=== PATIENT | male | born 1950 | race Two or more races ===

== ENCOUNTER → 2016-07-03 | Outpatient (CLI) | payer MEDICARE | LOC: MW.CHIM 08:00 | PROVIDERS: ATTEND Internal Medicine | DX: K40.90 Unilateral inguinal hernia, without obstruction or gangrene, not specified as recurrent (principal); I10 Essential (primary) hypertension; R41.89 Other symptoms and signs involving cognitive functions and awareness; G25.2 Other specified forms of tremor | CPT/HCPCS: 99214 ==

== ENCOUNTER → 2016-07-05 | Outpatient (CLI) | payer MEDICARE | LOC: MW.CHGS 08:00 | PROVIDERS: ATTEND Surgery | DX: K40.90 Unilateral inguinal hernia, without obstruction or gangrene, not specified as recurrent (principal); N48.9 Disorder of penis, unspecified | CPT/HCPCS: 99204 ==

== ENCOUNTER 2016-11-10 20:42 | Emergency (ER) | payer MEDICARE, MEDICAID ==
[2016-11-10] MEDS ORDERED: Sodium Chloride 0.9% 1,000 ML IV ONE ×2 (20:53→22:04)
--- NOTE | 2016-11-10 20:54 | EDM.PDOC ---
ED HPI GENERAL MEDICAL PROBLEM - General Stated Complaint: PT LIGHTHEADED AND BLURRED VISION Time Seen by Provider: 11/10/16 20:54 Source of Information: Reports: Patient - History of Present Illness INITIAL COMMENTS - FREE TEXT/NARRATIVE: HISTORY AND PHYSICAL: History of present illness: []Patient presents with one week of generalized weakness decreased appetite polydipsia and polyuria states that he feels somewhat shaky tonight he is in no distress Has a history of hypertension and dyslipidemia followed by Dr. Henderson No fever nausea vomiting chills sweats no chest pain shortness breath headache or palpitation no bowel symptoms patient has been lightheaded at times over the last week as well as noting some blurred vision currently he does not have the symptoms Review of systems: As per history of present illness and below otherwise all systems reviewed and negative. Past medical history: As per history of present illness and as reviewed below otherwise noncontributory. Surgical history: As per history of present illness and as reviewed below otherwise noncontributory. Social history: No reported history of drug or alcohol abuse. Family history: As per history of present illness and as reviewed below otherwise noncontributory. Physical exam: HEENT: Atraumatic, normocephalic, pupils reactive, negative for conjunctival pallor or scleral icterus, mucous membranes moist, throat clear, neck supple, nontender, trachea midline. Lungs: Clear to auscultation, breath sounds equal bilaterally, chest nontender. Heart: S1S2, regular, negative for clicks, rubs, or JVD. Abdomen: Soft, nondistended, nontender. Negative for masses or hepatosplenomegaly. Negative for costovertebral tenderness. Pelvis: Stable nontender. Genitourinary: Deferred. Rectal: Deferred. Extremities: Atraumatic, negative for cords or calf pain. Neurovascular unremarkable. Neuro: Awake, alert, oriented. Cranial nerves II through XII unremarkable. Cerebellum unremarkable. Motor and sensory unremarkable throughout. Exam nonfocal. Diagnostics: []CBC, CMP, UA--troponin, A1c EKG Chest 1 view Therapeutics: []Liter normal saline bolus 2 10 units of regular insulin IV 2 Potassium chloride 40 mEq by mouth Potassium 40 mEq by mouth daily #3 no refill Metformin 500 by mouth daily #10 no refill Follow-up with Dr. Henderson on Sunday ER referral provided Impression: []Hyperglycemia Mild hypocalcemia New-onset diabetes Chronic history of baseline Definitive disposition and diagnosis as appropriate pending reevaluation and review of above. - Related Data Allergies Allergy/AdvReac Type Severity Reaction Status Date / Time No Known Allergies Allergy Verified 05/18/16 11:14 Home Meds: Home Meds . [Unable to Verify Home Med List] 11/10/16 [History] Past Medical History - Past Health History Medical/Surgical History: Denies Medical/Surgical History Cardiovascular History: Reports: Hypertension Social & Family History - Family History Family Medical History: Unobtainable - Tobacco Use Smoking Status *Q: Current Some Day Smoker Years of Tobacco use: 40 Packs/Tins Daily: 0.2 Second Hand Smoke Exposure: Yes - Caffeine Use Caffeine Use: Reports: Coffee - Alcohol Use Days Per Week of Alcohol Use: 0 - Recreational Drug Use Recreational Drug Use: No ED ROS GENERAL - Review of Systems Review Of Systems: ROS reveals no pertinent complaints other than HPI. ED EXAM, GENERAL - Physical Exam Exam: See Below Course - Vital Signs Last Recorded V/S: Last Vital Signs Temp 35.5 C 11/10/16 20:59 Pulse 82 11/10/16 20:59 Resp 16 11/10/16 20:59 BP 170/86 H 11/10/16 20:59 Pulse Ox 96 11/10/16 20:59 - Orders/Labs/Meds Orders: Active Orders 24 hr Category Date Time Status EKG Documentation Completion [RC] STAT Care 11/10/16 20:54 Active Chest 1V Frontal [CR] Stat Exams 11/10/16 21:04 Taken Sodium Chloride 0.9% [Normal Saline] 1,000 ml Med 11/10/16 22:04 Active IV STAT Medication Orders Sodium Chloride (Normal Saline) 1,000 mls @ 999 mls/hr IV STAT ONE Stop: 11/10/16 23:04 Last Admin: 11/10/16 22:06 Dose: 999 mls/hr Labs: Laboratory Tests 11/10/16 11/10/16 11/10/16 Range/Units 20:55 21:11 21:11 WBC 5.43 (4.0-11.0) K/uL RBC 5.11 (4.50-5.90) M/uL Hgb 16.0 (13.0-17.0) g/dL Hct 43.2 (38.0-50.0) % MCV 84.5 (80.0-98.0) fL MCH 31.3 (27.0-32.0) pg MCHC 37.0 (31.0-37.0) g/dL RDW Std Deviation 39.7 (28.0-62.0) fl RDW Coeff of Heath 14 (11.0-15.0) % Plt Count 186 (150-400) K/uL MPV 10.90 (7.40-12.00) fL Neut % (Auto) 52.7 (48.0-80.0) % Lymph % (Auto) 37.6 (16.0-40.0) % [place] % (Auto) 6.8 (0.0-15.0) % Eos % (Auto) 1.8 (0.0-7.0) % Baso % (Auto) 1.1 (0.0-1.5) % Neut # (Auto) 2.9 (1.4-5.7) K/uL Lymph # (Auto) 2.0 (0.6-2.4) K/uL [place] # (Auto) 0.4 (0.0-0.8) K/uL Eos # (Auto) 0.1 (0.0-0.7) K/uL Baso # (Auto) 0.1 (0.0-0.1) K/uL Nucleated RBC % 0.0 /100WBC Nucleated RBCs # 0 K/uL Sodium 133 L (136-146) mmol/L Potassium 3.2 L (3.5-5.1) mmol/L Chloride 100 (98-110) mmol/L Carbon Dioxide 21 (21-31) mmol/L BUN 19 (6.0-23.0) mg/dL Creatinine 1.0 (0.6-1.5) mg/dL Est Cr Clr Drug Dosing 37.89 mL/min Estimated GFR (MDRD) > 60.0 ml/min Glucose 517 H* (60-110) mg/dL POC Glucose (60-110) mg/dL Hemoglobin A1c (0.0-6.0) % Calcium 8.6 L (8.8-10.8) mg/dL Total Bilirubin 0.5 (0.1-1.5) mg/dL AST 19 (5-40) IU/L ALT 32 (8-54) IU/L Alkaline Phosphatase 134 (40-150) Troponin I (0.0-0.29) NG/ML Total Protein 6.6 (6.0-8.0) g/dL Albumin 3.7 (3.4-4.8) g/dL Globulin 2.9 (2.0-3.5) g/dL Albumin/Globulin Ratio 1.3 (1.3-2.8) Urine Color YELLOW Urine Appearance CLEAR Urine pH 5.5 (5.0-8.0) Ur Specific [place] 1.010 (1.001-1.035) Urine Protein NEGATIVE (NEGATIVE) mg/dL Urine Glucose (UA) >=1000 (NEGATIVE) mg/dL Urine Ketones 40 H (NEGATIVE) mg/dL Urine Occult Blood NEGATIVE (NEGATIVE) Urine Nitrite NEGATIVE (NEGATIVE) Urine Bilirubin NEGATIVE (NEGATIVE) Urine Urobilinogen 0.2 (<2.0) EU/dL Ur Leukocyte Esterase NEGATIVE (NEGATIVE) Urine RBC 0-1 (0-2/HPF) Urine WBC Not Reportable Ur Epithelial Cells RARE (NONE-FEW) Urine Bacteria RARE (NEGATIVE) 11/10/16 11/10/16 11/10/16 Range/Units 21:11 21:11 22:00 WBC (4.0-11.0) K/uL RBC (4.50-5.90) M/uL Hgb (13.0-17.0) g/dL Hct (38.0-50.0) % MCV (80.0-98.0) fL MCH (27.0-32.0) pg MCHC (31.0-37.0) g/dL RDW Std Deviation (28.0-62.0) fl RDW Coeff of Heath (11.0-15.0) % Plt Count (150-400) K/uL MPV (7.40-12.00) fL Neut % (Auto) (48.0-80.0) % Lymph % (Auto) (16.0-40.0) % [place] % (Auto) (0.0-15.0) % Eos % (Auto) (0.0-7.0) % Baso % (Auto) (0.0-1.5) % Neut # (Auto) (1.4-5.7) K/uL Lymph # (Auto) (0.6-2.4) K/uL [place] # (Auto) (0.0-0.8) K/uL Eos # (Auto) (0.0-0.7) K/uL Baso # (Auto) (0.0-0.1) K/uL Nucleated RBC % /100WBC Nucleated RBCs # K/uL Sodium (136-146) mmol/L Potassium (3.5-5.1) mmol/L Chloride (98-110) mmol/L Carbon Dioxide (21-31) mmol/L BUN (6.0-23.0) mg/dL Creatinine (0.6-1.5) mg/dL Est Cr Clr Drug Dosing mL/min Estimated GFR (MDRD) ml/min Glucose (60-110) mg/dL POC Glucose 310 H (60-110) mg/dL Hemoglobin A1c 13.4 H (0.0-6.0) % Calcium (8.8-10.8) mg/dL Total Bilirubin (0.1-1.5) mg/dL AST (5-40) IU/L ALT (8-54) IU/L Alkaline Phosphatase (40-150) Troponin I < 0.10 (0.0-0.29) NG/ML Total Protein (6.0-8.0) g/dL Albumin (3.4-4.8) g/dL Globulin (2.0-3.5) g/dL Albumin/Globulin Ratio (1.3-2.8) Urine Color Urine Appearance Urine pH (5.0-8.0) Ur Specific [place] (1.001-1.035) Urine Protein (NEGATIVE) mg/dL Urine Glucose (UA) (NEGATIVE) mg/dL Urine Ketones (NEGATIVE) mg/dL Urine Occult Blood (NEGATIVE) Urine Nitrite (NEGATIVE) Urine Bilirubin (NEGATIVE) Urine Urobilinogen (<2.0) EU/dL Ur Leukocyte Esterase (NEGATIVE) Urine RBC (0-2/HPF) Urine WBC Ur Epithelial Cells (NONE-FEW) Urine Bacteria (NEGATIVE) Meds: Medications Generic Name Dose Route Start Last Admin Trade Name Freq PRN Reason Stop Dose Admin Sodium Chloride 1,000 mls @ 999 mls/hr 11/10/16 22:04 11/10/16 22:06 Normal Saline IV 11/10/16 23:04 999 mls/hr STAT ONE Administration Discontinued Medications Generic Name Dose Route Start Last Admin Trade Name Rafa PRN Reason Stop Dose Admin Sodium Chloride 1,000 mls @ 999 mls/hr 11/10/16 20:53 11/10/16 21:15 Normal Saline IV 11/10/16 21:53 999 mls/hr STAT ONE Administration Insulin Human Regular 10 unit 11/10/16 21:18 11/10/16 21:26 Novolin R IVPUSH 11/10/16 21:19 10 units ONETIME ONE Administration Protocol Insulin Human Regular 10 unit 11/10/16 22:04 11/10/16 22:08 Novolin R IVPUSH 11/10/16 22:05 10 units ONETIME ONE Administration Protocol Potassium Chloride 40 meq 11/10/16 22:35 Potassium Chloride PO 11/10/16 22:36 ONETIME ONE Departure - Departure Time of Disposition: 22:50 Disposition: Home, Self-Care 01 Condition: Good Clinical Impression: Diabetes, Hyperglycemia, Hypokalemia - Discharge Information Additional Instructions: Medication as prescribed Continue your current home medications Follow-up with Dr. Almanzar on Sunday ER referral provided Return if symptoms persist or worsen or new concerning symptoms develop [facility] - Primary Care [address] [place] [address] The following information is given to patients seen in the emergency department who are being discharged to home. This information is to outline your options for follow-up care. We provide all patients seen in our emergency department with a follow-up referral. The need for follow-up, as well as the timing and circumstances, are variable depending upon the specifics of your emergency department visit. If you don't have a primary care physician on staff, we will provide you with a referral. We always advise you to contact your personal physician following an emergency department visit to inform them of the circumstance of the visit and for follow-up with them and/or the need for any referrals to a consulting specialist. The emergency department will also refer you to a specialist when appropriate. This referral assures that you have the opportunity for follow-up care with a specialist. All of these measure are taken in an effort to provide you with optimal care, which includes your follow-up. Under all circumstances we always encourage you to contact your private physician who remains a resource for coordinating your care. When calling for follow-up care, please make the office aware that this follow-up is from your recent emergency room visit. If for any reason you are refused follow-up, please contact the emergency department at and asked to speak to the emergency department charge nurse. - My Orders Last 24 Hours: My Active Orders 11/10/16 20:54 EKG Documentation Completion [RC] STAT 11/10/16 21:04 Chest 1V Frontal [CR] Stat 11/10/16 22:04 Sodium Chloride 0.9% [Normal Saline] 1,000 ml IV STAT - Assessment/Plan Last 24 Hours: My Active Orders 11/10/16 20:54 EKG Documentation Completion [RC] STAT 11/10/16 21:04 Chest 1V Frontal [CR] Stat 11/10/16 22:04 Sodium Chloride 0.9% [Normal Saline] 1,000 ml IV STAT
[2016-11-10] MEDS ORDERED: Insulin Regular, Human 100 Units/ML 10 ML Vial IVPUSH ONE ×2 (21:18→22:04)
[2016-11-10 22:17] LABS: CHLORIDE,CL 100 mmol/L (98-110); SODIUM,NA 133 mmol/L (136-146)
[2016-11-10] MEDS ORDERED: Potassium Chloride 10% 20 MEQ/15 ML Soln 30 ML UD Cup PO ONE (22:35)
[2016-11-10 22:59] VITALS: BP 122/71
--- NOTE | 2016-11-13 11:54 | CR ---
EXAM DATE: 11/10/16 PATIENT'S AGE: 66 Patient: PARISH JEAN BAPTISTE Facility: [place], [place] Site . Site : [id number] Study: XRay Chest [id number]/21/2017 9:32:11 PM Ordering Physician: Doctor Gonzalez Final Report: Indication: Dehydration, blurred vision, rapid weight loss Technique: Chest 1 view Comparison: May 18, 2016. Findings/Impression: Cardiovascular and mediastinum: Heart size and vasculature are normal in caliber and appearance. Mediastinum is within normal limits. Lungs and pleural space: Lungs are clear. No sign of infiltrate or mass. No sign of pleural effusion. No pneumothorax. Bones and soft tissues: No acute findings. Dictated by Carmita Shah MD @ Nov 10 2016 9:45PM (Electronic Signature) Report Signed by Proxy. VICKY
== END 2016-11-10 23:15 | disposition home or self-care (01) ==
LOC: MW.ED 20:42
DX: E11.65 Type 2 diabetes mellitus with hyperglycemia (principal); E83.51 Hypocalcemia; E87.6 Hypokalemia; I10 Essential (primary) hypertension; F17.210 Nicotine dependence, cigarettes, uncomplicated
CPT/HCPCS: 36415; 71010; 80053; 81001; 82962; 83036; 84484; 85025; 93005; 96361; 96374; 96376; 99285; A9270; J7040; 99283; J1815-GY

== ENCOUNTER 2016-11-11 21:50 | Observation (INO) | payer MEDICARE, MEDICAID ==
--- NOTE | 2016-11-11 22:00 | EDM.PDOC ---
ED HPI GENERAL MEDICAL PROBLEM - General Chief Complaint: Diabetic Complaint Stated Complaint: PT BLOOD SUGAR HIGH Time Seen by Provider: 11/11/16 22:00 Source of Information: Reports: Patient - History of Present Illness INITIAL COMMENTS - FREE TEXT/NARRATIVE: HISTORY AND PHYSICAL: History of present illness: []Patient returns he was in yesterday with elevated glucose Stat diabetes is over 500 tonight No fever nausea vomiting chills sweats Review of systems: As per history of present illness and below otherwise all systems reviewed and negative. Past medical history: As per history of present illness and as reviewed below otherwise noncontributory. Surgical history: As per history of present illness and as reviewed below otherwise noncontributory. Social history: No reported history of drug or alcohol abuse. Family history: As per history of present illness and as reviewed below otherwise noncontributory. Physical exam: HEENT: Atraumatic, normocephalic, pupils reactive, negative for conjunctival pallor or scleral icterus, mucous membranes moist, throat clear, neck supple, nontender, trachea midline. Lungs: Clear to auscultation, breath sounds equal bilaterally, chest nontender. Heart: S1S2, regular, negative for clicks, rubs, or JVD. Abdomen: Soft, nondistended, nontender. Negative for masses or hepatosplenomegaly. Negative for costovertebral tenderness. Pelvis: Stable nontender. Genitourinary: Deferred. Rectal: Deferred. Extremities: Atraumatic, negative for cords or calf pain. Neurovascular unremarkable. Neuro: Awake, alert, oriented. Cranial nerves II through XII unremarkable. Cerebellum unremarkable. Motor and sensory unremarkable throughout. Exam nonfocal. Diagnostics: []Lab on file from yesterday Therapeutics: []Liter normal saline bolus Insulin 10 units IV 10 unit subcutaneous admitted to Dr. Almanzar for optimizing medical management Impression: [] Hyperglycemia Uncontrolled New-onset diabetes Definitive disposition and diagnosis as appropriate pending reevaluation and review of above. - Related Data Allergies Allergy/AdvReac Type Severity Reaction Status Date / Time No Known Allergies Allergy Verified 05/18/16 11:14 Home Meds: Home Meds . [Unable to Verify Home Med List] 11/10/16 [History] Past Medical History - Past Health History Medical/Surgical History: Denies Medical/Surgical History Cardiovascular History: Reports: Hypertension - Past Surgical History GI Surgical History: Reports: Appendectomy Social & Family History - Family History Family Medical History: Unobtainable - Tobacco Use Smoking Status *Q: Current Some Day Smoker Years of Tobacco use: 40 Packs/Tins Daily: 0.2 Second Hand Smoke Exposure: Yes - Caffeine Use Caffeine Use: Reports: Coffee - Alcohol Use Days Per Week of Alcohol Use: 0 - Recreational Drug Use Recreational Drug Use: No ED ROS GENERAL - Review of Systems Review Of Systems: ROS reveals no pertinent complaints other than HPI. ED EXAM GENERAL NO PERIP PULSE - Physical Exam Exam: See Below Course - Vital Signs Last Recorded V/S: Last Vital Signs Temp 37.0 C 11/11/16 21:55 Pulse 81 11/11/16 21:55 Resp 20 11/11/16 21:55 BP 119/71 11/11/16 21:55 Pulse Ox 97 11/11/16 21:55 - Orders/Labs/Meds Orders: Active Orders 24 hr Category Date Time Status Accu Check [Blood Glucose Check, Bedside] [RC] ONETIME Care 11/11/16 21:59 Active Accu Check [Blood Glucose Check, Bedside] [RC] ONETIME Care 11/11/16 23:02 Active CELL COUNT,CSF [BF] Stat Lab 11/11/16 23:18 Cancelled Insulin Regular, Human [NovoLIN R] Med 11/12/16 22:20 Once 10 unit SUBCUT ONETIME ONE Sodium Chloride 0.9% [Normal Saline] 1,000 ml Med 11/11/16 22:30 Active IV STAT Medication Orders Sodium Chloride (Normal Saline) 1,000 mls @ 125 mls/hr IV STAT ANDRE Insulin Human Regular (Novolin R) 10 unit SUBCUT ONETIME ONE PRN Reason: Protocol Stop: 11/12/16 22:21 Last Admin: 11/11/16 22:24 Dose: 10 units Labs: Laboratory Tests 11/11/16 11/11/16 11/11/16 Range/Units 22:01 22:15 22:15 WBC 5.22 (4.0-11.0) K/uL RBC 4.86 (4.50-5.90) M/uL Hgb 15.0 (13.0-17.0) g/dL Hct 41.4 (38.0-50.0) % MCV 85.2 (80.0-98.0) fL MCH 30.9 (27.0-32.0) pg MCHC 36.2 (31.0-37.0) g/dL RDW Std Deviation 39.9 (28.0-62.0) fl RDW Coeff of Heath 13 (11.0-15.0) % Plt Count 166 (150-400) K/uL MPV 10.70 (7.40-12.00) fL Neut % (Auto) 53.1 (48.0-80.0) % Lymph % (Auto) 35.4 (16.0-40.0) % [place] % (Auto) 6.7 (0.0-15.0) % Eos % (Auto) 3.8 (0.0-7.0) % Baso % (Auto) 1.0 (0.0-1.5) % Neut # (Auto) 2.8 (1.4-5.7) K/uL Lymph # (Auto) 1.9 (0.6-2.4) K/uL [place] # (Auto) 0.4 (0.0-0.8) K/uL Eos # (Auto) 0.2 (0.0-0.7) K/uL Baso # (Auto) 0.1 (0.0-0.1) K/uL Nucleated RBC % 0.0 /100WBC Nucleated RBCs # 0 K/uL Sodium 128 L (136-146) mmol/L Potassium 4.2 (3.5-5.1) mmol/L Chloride 96 L (98-110) mmol/L Carbon Dioxide 19 L (21-31) mmol/L BUN 14 (6.0-23.0) mg/dL Creatinine 1.1 (0.6-1.5) mg/dL Est Cr Clr Drug Dosing 58.15 mL/min Estimated GFR (MDRD) > 60.0 ml/min Glucose 573 H* (60-110) mg/dL POC Glucose > 500 H (60-110) mg/dL Calcium 8.8 (8.8-10.8) mg/dL 11/11/16 Range/Units 23:05 WBC (4.0-11.0) K/uL RBC (4.50-5.90) M/uL Hgb (13.0-17.0) g/dL Hct (38.0-50.0) % MCV (80.0-98.0) fL MCH (27.0-32.0) pg MCHC (31.0-37.0) g/dL RDW Std Deviation (28.0-62.0) fl RDW Coeff of [place] (11.0-15.0) % Plt Count (150-400) K/uL MPV (7.40-12.00) fL Neut % (Auto) (48.0-80.0) % Lymph % (Auto) (16.0-40.0) % [place] % (Auto) (0.0-15.0) % Eos % (Auto) (0.0-7.0) % Baso % (Auto) (0.0-1.5) % Neut # (Auto) (1.4-5.7) K/uL Lymph # (Auto) (0.6-2.4) K/uL [place] # (Auto) (0.0-0.8) K/uL Eos # (Auto) (0.0-0.7) K/uL Baso # (Auto) (0.0-0.1) K/uL Nucleated RBC % /100WBC Nucleated RBCs # K/uL Sodium (136-146) mmol/L Potassium (3.5-5.1) mmol/L Chloride (98-110) mmol/L Carbon Dioxide (21-31) mmol/L BUN (6.0-23.0) mg/dL Creatinine (0.6-1.5) mg/dL Est Cr Clr Drug Dosing mL/min Estimated GFR (MDRD) ml/min Glucose (60-110) mg/dL POC Glucose 399 H (60-110) mg/dL Calcium (8.8-10.8) mg/dL Meds: Medications Generic Name Dose Route Start Last Admin Trade Name Freq PRN Reason Stop Dose Admin Sodium Chloride 1,000 mls @ 125 mls/hr 11/11/16 22:30 Normal Saline IV STAT ANDRE Insulin Human Regular 10 unit 11/12/16 22:20 11/11/16 22:24 Novolin R SUBCUT 11/12/16 22:21 10 units ONETIME ONE Administration Protocol Discontinued Medications Generic Name Dose Route Start Last Admin Trade Name Freq PRN Reason Stop Dose Admin Sodium Chloride 1,000 mls @ 999 mls/hr 11/11/16 22:04 11/11/16 22:23 Normal Saline IV 11/11/16 23:04 999 mls/hr STAT ONE Administration Insulin Human Regular 10 unit 11/11/16 22:05 11/11/16 22:23 Novolin R IVPUSH 11/11/16 22:06 10 units ONETIME ONE Administration Protocol Departure - Departure Time of Disposition: 23:20 Disposition: Refer to Observation Condition: Fair Clinical Impression: Hyperglycemia, Dehydration - Discharge Information Forms: ED Department Discharge - My Orders Last 24 Hours: My Active Orders 11/11/16 21:59 Accu Check [Blood Glucose Check, Bedside] [RC] ONETIME 11/11/16 22:30 Sodium Chloride 0.9% [Normal Saline] 1,000 ml IV STAT 11/11/16 23:02 Accu Check [Blood Glucose Check, Bedside] [RC] ONETIME 11/11/16 23:18 CELL COUNT,CSF [BF] Stat (Cancelled) 11/12/16 22:20 Insulin Regular, Human [NovoLIN R] 10 unit SUBCUT ONETIME ONE - Assessment/Plan Last 24 Hours: My Active Orders 11/11/16 21:59 Accu Check [Blood Glucose Check, Bedside] [RC] ONETIME 11/11/16 22:30 Sodium Chloride 0.9% [Normal Saline] 1,000 ml IV STAT 11/11/16 23:02 Accu Check [Blood Glucose Check, Bedside] [RC] ONETIME 11/11/16 23:18 CELL COUNT,CSF [BF] Stat (Cancelled) 11/12/16 22:20 Insulin Regular, Human [NovoLIN R] 10 unit SUBCUT ONETIME ONE
[2016-11-11] MEDS ORDERED: Sodium Chloride 0.9% 1,000 ML IV ONE (22:04)
[2016-11-11] MEDS ORDERED: Insulin Regular, Human 100 Units/ML 10 ML Vial IVPUSH ONE (22:05)
[2016-11-11] MEDS ORDERED: Sodium Chloride 0.9% 1,000 ML IV SCH (22:30)
[2016-11-11 22:54] LABS: CHLORIDE,CL 96 mmol/L (98-110); SODIUM,NA 128 mmol/L (136-146)
--- NOTE | 2016-11-12 01:27 | PCM.HP ---
H&P History of Present Illness - General Date of Service: 11/12/16 Admit Problem/Dx: Admission Diagnosis/Problem Admission Diagnosis/Problem Hyperglycemia Source of Information: Patient, Family History Limitations: Reports: No Limitations - History of Present Illness Initial Comments - Free Text/Narative: The patient is a 66-year-old gentleman who is presented to the emergency department twice in a 24-hour period the patient was noted to have markedly elevation of his glucose which is something new for him. The patient has been seen in my office on several occasions but has recently started a string of no shows for his appointments. Patient also because of his tremors has been referred to neurology but he has failed to follow these as well. The patient's hemoglobin A1c in February 2015 was less than 6%. Patient reports that he has been extra thirsty been urinating. Patient says that his tremors have been getting worse. The patient's had no specific aggravating or relieving factors for this. The patient is concerned that he has developed diabetes is and is not sure how this is happened. The patient speaks some Spanish but Greek is his second language and his relatives are with him. Onset of Symptoms: Reports: Unknown/Unsure Location: Reports: Generalized Severity: Mild Improves with: Reports: None Worsens with: Reports: None Associated Symptoms: Reports: Weakness - Related Data Allergies/Adverse Reactions: Allergies Allergy/AdvReac Type Severity Reaction Status Date / Time No Known Allergies Allergy Verified 05/18/16 11:14 Home Medications: Home Meds Hydrochlorothiazide 1 tab PO DAILY 11/11/16 [History] Lisinopril 1 tab PO DAILY 11/11/16 [History] Potassium Citrate [Potassium Citrate ER] 40 meq PO DAILY 11/11/16 [History] metFORMIN HCl [Metformin HCl] 1 tab PO DAILY 11/11/16 [History] Past Medical History - Past Health History Medical/Surgical History: Denies Medical/Surgical History HEENT History: Reports: None Cardiovascular History: Reports: Hypertension Respiratory History: Reports: None Gastrointestinal History: Reports: None Genitourinary History: Reports: Other (See Below) (Penal mass) Musculoskeletal History: Reports: None Neurological History: Reports: Parkinson's Psychiatric History: Reports: None Endocrine/Metabolic History: Reports: None Hematologic History: Reports: None Immunologic History: Reports: None - Past Surgical History GI Surgical History: Reports: Appendectomy Social & Family History - Family History Family Medical History: Unobtainable - Tobacco Use Smoking Status *Q: Never Smoker Years of Tobacco use: 40 Packs/Tins Daily: 0.2 Second Hand Smoke Exposure: No - Caffeine Use Caffeine Use: Reports: None - Alcohol Use Days Per Week of Alcohol Use: 0 - Recreational Drug Use Recreational Drug Use: No H&P Review of Systems - Review of Systems: Review Of Systems: See Below General: Reports: Weakness, Fatigue HEENT: Reports: No Symptoms Pulmonary: Reports: No Symptoms Cardiovascular: Reports: No Symptoms Gastrointestinal: Reports: No Symptoms Genitourinary: Reports: Frequency, Other (Mass of penis) Musculoskeletal: Reports: Joint Pain, Muscle Stiffness Skin: Reports: No Symptoms Psychiatric: Reports: No Symptoms Neurological: Reports: No Symptoms Hematologic/Lymphatic: Reports: No Symptoms Immunologic: Reports: No Symptoms Exam - Exam Exam: See Below - Vital Signs Vital Signs: Last Vital Signs Temp 36.0 C 11/11/16 23:39 Pulse 68 11/11/16 23:39 Resp 16 11/11/16 23:39 BP 138/70 11/11/16 23:39 Pulse Ox 97 11/11/16 23:39 Weight: 81.9 kg - Exam Quality Assessment: No: Supplemental Oxygen General: Alert, Oriented, Cooperative HEENT: Conjunctiva Clear, EACs Clear, Nares Patent, Posterior Pharynx Clear. No : Mucosa Moist & [place] (Dry) Neck: Supple, Trachea Midline Lungs: Clear to Auscultation, Normal Respiratory Effort Cardiovascular: Regular Rate, Regular Rhythm GI/Abdominal Exam: Normal Bowel Sounds, Soft, Non-Tender Back Exam: Decreased Range of Motion Extremities: Normal Inspection Neurological: Cranial Nerves Intact, Other (Pill-rolling tremor) Neuro Extensive - Motor, Sensory, Reflexes: CN II-XII Intact Psychiatric: Alert, Normal Affect, Normal Mood - Patient Data Lab Results Last 24 hrs: Laboratory Results - last 24 hr 11/12/16 Range/Units 00:49 POC Glucose 334 H (60-110) mg/dL Result Diagrams: 11/12/16 05:10 11/12/16 05:10 *Q Meaningful Use (ADM) - VTE *Q VTE Criteria *Q: - VTE Risk Assess *Q Each Risk Factor Represents 1 Point: None Total Score 1 Point Risk Factors: 0 Each Risk Factor Represents 2 Points: Age 60 - 74 Years Total Score 2 Point Risk Factors: 2 Each Risk Factor Represents 3 Points: None Total Score 3 Point Risk Factors: 0 Each Risk Factor Represents 5 Points: None Total Score 5 Point Risk Factors: 0 Venous Thromboembolism Risk Factor Score *Q: 2 - Stroke *Q Stroke Criteria *Q: - AMI *Q AMI Criteria *Q: - Problem List (1) Diabetes mellitus type 2, uncontrolled, without complications SNOMED Code(s): 151969680, 588120122 ICD Code: E11.65 - TYPE 2 DIABETES MELLITUS WITH HYPERGLYCEMIA Status: Acute Current Visit: Yes Qualifiers: Diabetes mellitus alf insulin use: with joint terminal attack controller use Qualified Code( s): E11.65 - Type 2 diabetes mellitus with hyperglycemia; Z79.4 - superintendent container terminal ( current) use of insulin (2) Hyponatremia SNOMED Code(s): 31286467 ICD Code: E87.1 - HYPO-OSMOLALITY AND HYPONATREMIA Status: Acute Priority : High Current Visit: Yes Problem Details: Pseudohyponatremia (3) Pill rolling tremors SNOMED Code(s): 454047798 ICD Code: R25.1 - TREMOR, UNSPECIFIED Status: Chronic Priority: Medium Current Visit: Yes (4) Hypertension SNOMED Code(s): 94302586 ICD Code: I10 - ESSENTIAL (PRIMARY) HYPERTENSION Status: Acute Current Visit: No Qualifiers: Hypertension type: essential hypertension Qualified Code(s): I10 - Essential (primary) hypertension Problem List Initiated/Reviewed/Updated: Yes Orders Last 24hrs: Active Orders 24 hr Category Date Time Status Accu Check [Blood Glucose Check, Bedside] [RC] Care 11/12/16 07:30 Active QIDACANDBED [place] [employer] Diet [DIET] Diet 11/12/16 Breakfast Active CBC WITH AUTO DIFF [HEME] Routine Lab 11/12/16 05:00 Ordered CMP [COMPREHENSIVE METABOLIC PN,CMP] [CHEM] Routine Lab 11/12/16 05:00 Ordered Hydrochlorothiazide Med 11/12/16 09:00 Active 25 mg PO DAILY Insulin Aspart [NovoLOG] Med 11/12/16 07:30 Active See Protocol SUBCUT TIDAC Lisinopril [Prinivil] Med 11/12/16 09:00 Active 20 mg PO DAILY Sodium Chloride 0.9% [Normal Saline] 1,000 ml Med 11/12/16 00:30 Active IV ASDIRECTED metFORMIN [Glucophage XR] Med 11/12/16 08:00 Active 500 mg PO BIDMEALS Medication Orders Hydrochlorothiazide (Hydrochlorothiazide) 25 mg PO DAILY [facility] Sodium Chloride (Normal Saline) 1,000 mls @ 125 mls/hr IV STAT [facility] Last Admin: 11/11/16 23:21 Dose: 125 mls/hr Sodium Chloride (Normal Saline) 1,000 mls @ 125 mls/hr IV ASDIRECTED ANDRE Insulin Aspart (Novolog) 0 unit SUBCUT TIDAC [facility] PRN Reason: Protocol Insulin Human Regular (Novolin R) 10 unit SUBCUT ONETIME ONE PRN Reason: Protocol Stop: 11/12/16 22:21 Last Admin: 11/11/16 22:24 Dose: 10 units Lisinopril (Prinivil) 20 mg PO DAILY [facility] Metformin HCl (Glucophage Xr) 500 mg PO BIDMEALS [facility] Assessment/Plan Comment:: The patient is a 66-year-old gentleman who is been admitted observation secondary to severe hyperglycemia. This is essentially represents new onset uncontrolled diabetes. This is something new for the patient. His previous hemoglobin A1c in February 2015 was less than 6%. The patient is known to me from office visits. The patient will be started on moderate dose sliding scale insulin, metformin 500 mg by mouth twice a day, lisinopril 10 mg by mouth daily for his blood pressure control as well as renal protection. He also be kept on a ADA diet and I've encouraged the patient to ambulate and will use SCDs for DVT prophylaxis. I had a discussion with the patient with regards to the importance of maintaining appointments for follow-up of his medical conditions. The patient will also be kept on fluids for resuscitation at normal saline at 125 mL per hour. The patient does have hyponatremia and I suspected this is secondary to his hyperglycemia. The sodium is corrected it's in the normal range.
[2016-11-12 06:29] LABS: CHLORIDE,CL 105 mmol/L (98-110); SODIUM,NA 135 mmol/L (136-146)
[2016-11-12] MEDS: Sodium Chloride 0.9% 1,000 ML IV SCH ×2 (06:33→21:41)
[2016-11-12] MEDS: Insulin Aspart 100 Units/ML 3 ML Pen SUBCUT SCH ×4 (07:20→22:31)
[2016-11-12] MEDS: metFORMIN 500 MG Tab.ER PO SCH ×3 (08:08→22:36)
[2016-11-12] MEDS: Hydrochlorothiazide 25 MG Tab PO SCH (08:11)
[2016-11-12] MEDS: Lisinopril 10 MG Tab PO SCH (08:11)
[2016-11-12] MEDS ORDERED: LISINOPRIL PO SCH (09:00)
--- NOTE | 2016-11-12 09:52 | PCM.PN ---
- General Info Date of Service: 11/12/16 Admission Dx/Problem (Free Text): Admission Diagnosis/Problem Admission Diagnosis/Problem Hyperglycemia Patient has no onset diabetes mellitus type 2. Subjective Update: Overall, the patient is doing much better today. The patient is tolerating diet. Patient's family is not with him presently. Functional Status: Reports: Pain Controlled, Tolerating Diet, Ambulating - Review of Systems General: Reports: Weakness HEENT: Reports: No Symptoms Pulmonary: Reports: No Symptoms Cardiovascular: Reports: No Symptoms Gastrointestinal: Reports: No Symptoms Genitourinary: Reports: No Symptoms Musculoskeletal: Reports: No Symptoms Skin: Reports: No Symptoms Neurological: Reports: No Symptoms Psychiatric: Reports: No Symptoms - Patient Data Vitals - most recent: Last Vital Signs Temp 35.9 C 11/12/16 08:00 Pulse 73 11/12/16 08:00 Resp 14 11/12/16 08:00 BP 129/68 11/12/16 08:11 Pulse Ox 94 L 11/12/16 08:00 Weight - most recent: 81.9 kg I&O - last 24 hours: Intake & Output 11/11/16 11/12/16 11/12/16 22:59 06:59 14:59 Intake Total 1000 Output Total 550 Balance 450 Lab Results last 24 hrs: Laboratory Results - last 24 hr 11/12/16 11/12/16 11/12/16 Range/Units 00:49 05:10 05:10 WBC 5.13 (4.0-11.0) K/uL RBC 4.53 (4.50-5.90) M/uL Hgb 13.7 (13.0-17.0) g/dL Hct 38.6 (38.0-50.0) % MCV 85.2 (80.0-98.0) fL MCH 30.2 (27.0-32.0) pg MCHC 35.5 (31.0-37.0) g/dL RDW Std Deviation 40.0 (28.0-62.0) fl RDW Coeff of Heath 13 (11.0-15.0) % Plt Count 163 (150-400) K/uL MPV 10.50 (7.40-12.00) fL Neut % (Auto) 43.5 L (48.0-80.0) % Lymph % (Auto) 45.4 H (16.0-40.0) % [place] % (Auto) 6.4 (0.0-15.0) % Eos % (Auto) 3.9 (0.0-7.0) % Baso % (Auto) 0.8 (0.0-1.5) % Neut # (Auto) 2.2 (1.4-5.7) K/uL Lymph # (Auto) 2.3 (0.6-2.4) K/uL [place] # (Auto) 0.3 (0.0-0.8) K/uL Eos # (Auto) 0.2 (0.0-0.7) K/uL Baso # (Auto) 0.0 (0.0-0.1) K/uL Nucleated RBC % 0.0 /100WBC Nucleated RBCs # 0 K/uL Sodium 135 L (136-146) mmol/L Potassium 3.8 (3.5-5.1) mmol/L Chloride 105 (98-110) mmol/L Carbon Dioxide 19 L (21-31) mmol/L BUN 11 (6.0-23.0) mg/dL Creatinine 0.8 (0.6-1.5) mg/dL Est Cr Clr Drug Dosing 79.96 mL/min Estimated GFR (MDRD) > 60.0 ml/min Glucose 280 H (60-110) mg/dL POC Glucose 334 H (60-110) mg/dL Hemoglobin A1c (0.0-6.0) % Calcium 8.3 L (8.8-10.8) mg/dL Phosphorus (2.4-4.7) mg/dL Magnesium (1.5-2.3) mEq/L Total Bilirubin 0.5 (0.1-1.5) mg/dL AST 19 (5-40) IU/L ALT 29 (8-54) IU/L Alkaline Phosphatase 100 (40-150) Total Protein 6.1 (6.0-8.0) g/dL Albumin 3.5 (3.4-4.8) g/dL Globulin 2.6 (2.0-3.5) g/dL Albumin/Globulin Ratio 1.4 (1.3-2.8) 11/12/16 11/12/16 Range/Units 05:10 05:10 WBC (4.0-11.0) K/uL RBC (4.50-5.90) M/uL Hgb (13.0-17.0) g/dL Hct (38.0-50.0) % MCV (80.0-98.0) fL MCH (27.0-32.0) pg MCHC (31.0-37.0) g/dL RDW Std Deviation (28.0-62.0) fl RDW Coeff of Heath (11.0-15.0) % Plt Count (150-400) K/uL MPV (7.40-12.00) fL Neut % (Auto) (48.0-80.0) % Lymph % (Auto) (16.0-40.0) % [place] % (Auto) (0.0-15.0) % Eos % (Auto) (0.0-7.0) % Baso % (Auto) (0.0-1.5) % Neut # (Auto) (1.4-5.7) K/uL Lymph # (Auto) (0.6-2.4) K/uL [place] # (Auto) (0.0-0.8) K/uL Eos # (Auto) (0.0-0.7) K/uL Baso # (Auto) (0.0-0.1) K/uL Nucleated RBC % /100WBC Nucleated RBCs # K/uL Sodium (136-146) mmol/L Potassium (3.5-5.1) mmol/L Chloride (98-110) mmol/L Carbon Dioxide (21-31) mmol/L BUN (6.0-23.0) mg/dL Creatinine (0.6-1.5) mg/dL Est Cr Clr Drug Dosing mL/min Estimated GFR (MDRD) ml/min Glucose (60-110) mg/dL POC Glucose (60-110) mg/dL Hemoglobin A1c 13.4 H (0.0-6.0) % Calcium (8.8-10.8) mg/dL Phosphorus 3.0 (2.4-4.7) mg/dL Magnesium 1.8 (1.5-2.3) mEq/L Total Bilirubin (0.1-1.5) mg/dL AST (5-40) IU/L ALT (8-54) IU/L Alkaline Phosphatase (40-150) Total Protein (6.0-8.0) g/dL Albumin (3.4-4.8) g/dL Globulin (2.0-3.5) g/dL Albumin/Globulin Ratio (1.3-2.8) Med Orders - Current: Current Medications Hydrochlorothiazide (Hydrochlorothiazide) 25 mg PO DAILY [facility] Last Admin: 11/12/16 08:11 Dose: 25 mg Sodium Chloride (Normal Saline) 1,000 mls @ 125 mls/hr IV ASDIRECTED [facility] Last Admin: 11/12/16 06:33 Dose: 125 mls/hr Insulin Aspart (Novolog) 0 unit SUBCUT TIDAC [facility] PRN Reason: Protocol Last Admin: 11/12/16 07:20 Dose: 8 units Lisinopril (Prinivil) 20 mg PO DAILY [facility] Last Admin: 11/12/16 08:11 Dose: 20 mg Metformin HCl (Glucophage Xr) 500 mg PO BIDMEALS [facility] Last Admin: 11/12/16 08:08 Dose: 500 mg Discontinued Medications Sodium Chloride (Normal Saline) 1,000 mls @ 999 mls/hr IV STAT ONE Stop: 11/11/16 23:04 Last Admin: 11/11/16 22:23 Dose: 999 mls/hr Sodium Chloride (Normal Saline) 1,000 mls @ 125 mls/hr IV STAT [facility] Last Infusion: 11/12/16 06:30 Dose: 125 mls/hr Insulin Human Regular (Novolin R) 10 unit IVPUSH ONETIME ONE PRN Reason: Protocol Stop: 11/11/16 22:06 Last Admin: 11/11/16 22:23 Dose: 10 units Insulin Human Regular (Novolin R) 10 unit SUBCUT ONETIME ONE PRN Reason: Protocol Stop: 11/12/16 22:21 Last Admin: 11/11/16 22:24 Dose: 10 units Non-Formulary Medication (Lisinopril) 1 tab PO DAILY [facility] - Exam Quality Assessment: No: supplemental oxygen General: alert, oriented, cooperative, no acute distress HEENT: Pupils equal, Pupils reactive, EOMI, Mucous membr. moist/pink Neck: supple, trachea midline Lungs: Clear to Auscultation, Normal Respiratory Effort Cardiovascular: Regular Rate, Regular Rhythm GI/Abdominal Exam: Normal Bowel Sounds, Soft, Non-Tender Back Exam: Normal Inspection Extremities: Normal Inspection, Normal Range of Motion Skin: warm, dry, intact Neurological: no new focal deficit, normal gait Psy/Mental Status: alert, normal affect, normal mood - Problem List & Annotations (1) Diabetes mellitus type 2, uncontrolled, without complications SNOMED Code(s): 459035923, 507704789 Code(s): E11.65 - TYPE 2 DIABETES MELLITUS WITH HYPERGLYCEMIA Status: Acute Current Visit: Yes Qualifiers: Diabetes mellitus group home insulin use: with termite treater helper use Qualified Code( s): E11.65 - Type 2 diabetes mellitus with hyperglycemia; Z79.4 - longterm ( current) use of insulin Annotation/Comment:: The patient's hemoglobin A1c is 13.4% (2) Hyponatremia SNOMED Code(s): 09522384 Code(s): E87.1 - HYPO-OSMOLALITY AND HYPONATREMIA Status: Acute Priority : High Current Visit: Yes Annotation/Comment:: Pseudohyponatremia (3) Pill rolling tremors SNOMED Code(s): 100490471 Code(s): R25.1 - TREMOR, UNSPECIFIED Status: Chronic Priority: Medium Current Visit: Yes Annotation/Comment:: Pill-rolling tremor, likely Parkinson' s (4) Hypertension SNOMED Code(s): 62504999 Code(s): I10 - ESSENTIAL (PRIMARY) HYPERTENSION Status: Chronic Current Visit: Yes Qualifiers: Hypertension type: essential hypertension Qualified Code(s): I10 - Essential (primary) hypertension - Problem List Review Problem List Initiated/Reviewed/Updated: Yes - My Orders Last 24 Hours: My Active Orders 11/12/16 00:30 Sodium Chloride 0.9% [Normal Saline] 1,000 ml IV ASDIRECTED 11/12/16 01:32 Code Status [Resuscitation Status] Routine 11/12/16 07:30 Accu Check [Blood Glucose Check, Bedside] [RC] QIDACANDBED Insulin Aspart [NovoLOG] See Protocol SUBCUT TIDAC 11/12/16 08:00 metFORMIN [Glucophage XR] 500 mg PO BIDMEALS 11/12/16 09:00 Hydrochlorothiazide 25 mg PO DAILY Lisinopril [Prinivil] 20 mg PO DAILY 11/12/16 Breakfast [place] [employer] Diet [DIET] - Plan Plan:: The patient is a 66-year-old gentleman who is been admitted observation secondary to severe hyperglycemia. This is essentially represents new onset uncontrolled diabetes. This is something new for the patient. His previous hemoglobin A1c in February 2015 was less than 6%. The patient is known to me from office visits. The patient will be started on moderate dose sliding scale insulin, metformin 500 mg by mouth twice a day, lisinopril 10 mg by mouth daily for his blood pressure control as well as renal protection. He also be kept on a ADA diet and I've encouraged the patient to ambulate and will use SCDs for DVT prophylaxis. I had a discussion with the patient with regards to the importance of maintaining appointments for follow-up of his medical conditions. The patient will also be kept on fluids for resuscitation at normal saline at 125 mL per hour. The patient does have hyponatremia and I suspected this is secondary to his hyperglycemia. The sodium is corrected it's in the normal range.
[2016-11-12] MEDS ORDERED: metFORMIN 500 MG Tab PO SCH (22:00)
[2016-11-12] MEDS ORDERED: Insulin Aspart 100 Units/ML 3 ML Pen SUBCUT ONE (22:06)
[2016-11-12] MEDS ORDERED: Insulin Regular, Human 100 Units/ML 10 ML Vial SUBCUT ONE (22:20)
[2016-11-13] MEDS: Sodium Chloride 0.9% 1,000 ML IV SCH (05:50)
[2016-11-13 06:34] LABS: CHLORIDE,CL 107 mmol/L (98-110); SODIUM,NA 140 mmol/L (136-146)
[2016-11-13] MEDS: Insulin Aspart 100 Units/ML 3 ML Pen SUBCUT SCH ×2 (06:51→11:45)
[2016-11-13] MEDS: metFORMIN 500 MG Tab.ER PO SCH (07:51)
[2016-11-13] MEDS: Lisinopril 10 MG Tab PO SCH (08:01)
[2016-11-13] MEDS: Hydrochlorothiazide 25 MG Tab PO SCH (08:01)
--- NOTE | 2016-11-13 10:42 | PCM.DCSUM1 ---
<Anyi Olsen - Last Filed: 11/13/16 13:02> Discharge Summary - Hospital Course Free Text/Narrative:: patient is a 66-year-old gentleman who is presented to the emergency department twice in a 24-hour period the patient was noted to have markedly elevation of his glucose which is something new for him. The patient has been seen in Dr. almanzar on several occasions but has recently started a string of no shows for his appointments. Patient also because of his tremors has been referred to neurology but he has failed to follow these as well. The patient's hemoglobin A1c in February 2015 was less than 6%. Patient reports that he has been extra thirsty been urinating. Patient says that his tremors have been getting worse. The patient's had no specific aggravating or relieving factors for this. The patient is concerned that he has developed diabetes is and is not sure how this is happened. His HB A1c is 13.4. He was started on insulin. special educator was consulted. His electrolytes were within normal limits. . He wanted to go home. He discharged with novolog 70/30 10 units at breakfast and 10 units at supper along with Metformin 1000 po bid. He is to follow up Dr. almanzar (PCP) and educator senior clinical. - Discharge Data Discharge Date: 11/13/16 Discharge Disposition: Home, Self-Care 01 Condition: Good - Patient Summary/Data Consults: Consultations 11/12/16 20:42 Consult to Microfilm Machine Operator [Consult to Diabetic Nurse Specialist] [CONS] Routine - Patient Instructions Diet: Diabetic Diet Activity: As Tolerated Driving: May Drive Today Showering/Bathing: May Shower Notify Provider of: Fever, Increased Pain, Swelling and Redness, Drainage, Nausea and/or Vomiting - Discharge Plan Prescriptions/Med Rec: metFORMIN [Glucophage XR] 1,000 mg PO BIDMEALS #60 tab.er Home Medications: Home Meds Hydrochlorothiazide 1 tab PO DAILY 11/11/16 [History] Lisinopril 1 tab PO DAILY 11/11/16 [History] Potassium Citrate [Potassium Citrate ER] 40 meq PO DAILY 11/11/16 [History] metFORMIN [Glucophage XR] 1,000 mg PO BIDMEALS #60 tab.er 11/13/16 [Rx] Patient Handouts: Type 2 Diabetes Mellitus, Adult, Metformin tablets Referrals: Héctor Almanzar DO [Physician] - 11/20/16 11:30 am - General Info Date of Service: 11/13/16 - Review of Systems General: Reports: No Symptoms HEENT: Reports: No Symptoms Pulmonary: Reports: No Symptoms Cardiovascular: Reports: No Symptoms Gastrointestinal: Reports: No Symptoms Genitourinary: Reports: No Symptoms Musculoskeletal: Reports: No Symptoms Skin: Reports: No Symptoms Neurological: Reports: No Symptoms Psychiatric: Reports: No Symptoms - Patient Data Vitals - Most Recent: Last Vital Signs Temp 96.9 F 11/13/16 08:00 Pulse 61 11/13/16 08:00 Resp 18 11/13/16 08:00 BP 101/59 L 11/13/16 08:01 Pulse Ox 94 L 11/13/16 08:00 Weight - Most Recent: 81.9 kg I&O - Last 24 hours: Intake & Output 11/12/16 11/13/16 11/13/16 22:59 06:59 14:59 Intake Total 1700 2250 Output Total 1065 1875 Balance 635 375 Lab Results - Last 24 hrs: Laboratory Results - last 24 hr 11/12/16 11/12/16 11/12/16 Range/Units 06:19 11:03 15:59 WBC (4.0-11.0) K/uL RBC (4.50-5.90) M/uL Hgb (13.0-17.0) g/dL Hct (38.0-50.0) % MCV (80.0-98.0) fL MCH (27.0-32.0) pg MCHC (31.0-37.0) g/dL RDW Std Deviation (28.0-62.0) fl RDW Coeff of Heath (11.0-15.0) % Plt Count (150-400) K/uL MPV (7.40-12.00) fL Neut % (Auto) (48.0-80.0) % Lymph % (Auto) (16.0-40.0) % [place] % (Auto) (0.0-15.0) % Eos % (Auto) (0.0-7.0) % Baso % (Auto) (0.0-1.5) % Neut # (Auto) (1.4-5.7) K/uL Lymph # (Auto) (0.6-2.4) K/uL [place] # (Auto) (0.0-0.8) K/uL Eos # (Auto) (0.0-0.7) K/uL Baso # (Auto) (0.0-0.1) K/uL Nucleated RBC % /100WBC Nucleated RBCs # K/uL Sodium (136-146) mmol/L Potassium (3.5-5.1) mmol/L Chloride (98-110) mmol/L Carbon Dioxide (21-31) mmol/L BUN (6.0-23.0) mg/dL Creatinine (0.6-1.5) mg/dL Est Cr Clr Drug Dosing mL/min Estimated GFR (MDRD) ml/min Glucose (60-110) mg/dL POC Glucose 340 H 246 H 236 H (60-110) mg/dL Calcium (8.8-10.8) mg/dL Phosphorus (2.4-4.7) mg/dL Magnesium (1.5-2.3) mEq/L Total Bilirubin (0.1-1.5) mg/dL AST (5-40) IU/L ALT (8-54) IU/L Alkaline Phosphatase (40-150) Total Protein (6.0-8.0) g/dL Albumin (3.4-4.8) g/dL Globulin (2.0-3.5) g/dL Albumin/Globulin Ratio (1.3-2.8) 11/12/16 11/13/16 11/13/16 Range/Units 21:16 05:35 05:35 WBC 4.59 (4.0-11.0) K/uL RBC 4.63 (4.50-5.90) M/uL Hgb 13.8 (13.0-17.0) g/dL Hct 39.6 (38.0-50.0) % MCV 85.5 (80.0-98.0) fL MCH 29.8 (27.0-32.0) pg MCHC 34.8 (31.0-37.0) g/dL RDW Std Deviation 41.3 (28.0-62.0) fl RDW Coeff of Heath 14 (11.0-15.0) % Plt Count 161 (150-400) K/uL MPV 10.60 (7.40-12.00) fL Neut % (Auto) 50.7 (48.0-80.0) % Lymph % (Auto) 36.8 (16.0-40.0) % [place] % (Auto) 8.1 (0.0-15.0) % Eos % (Auto) 3.5 (0.0-7.0) % Baso % (Auto) 0.9 (0.0-1.5) % Neut # (Auto) 2.3 (1.4-5.7) K/uL Lymph # (Auto) 1.7 (0.6-2.4) K/uL [place] # (Auto) 0.4 (0.0-0.8) K/uL Eos # (Auto) 0.2 (0.0-0.7) K/uL Baso # (Auto) 0.0 (0.0-0.1) K/uL Nucleated RBC % 0.0 /100WBC Nucleated RBCs # 0 K/uL Sodium 140 (136-146) mmol/L Potassium 3.5 (3.5-5.1) mmol/L Chloride 107 (98-110) mmol/L Carbon Dioxide 25 (21-31) mmol/L BUN 9 (6.0-23.0) mg/dL Creatinine 0.8 (0.6-1.5) mg/dL Est Cr Clr Drug Dosing 79.96 mL/min Estimated GFR (MDRD) > 60.0 ml/min Glucose 226 H (60-110) mg/dL POC Glucose 424 H (60-110) mg/dL Calcium 8.5 L (8.8-10.8) mg/dL Phosphorus 3.2 (2.4-4.7) mg/dL Magnesium 1.5 (1.5-2.3) mEq/L Total Bilirubin 0.6 (0.1-1.5) mg/dL AST 35 (5-40) IU/L ALT 42 (8-54) IU/L Alkaline Phosphatase 69 (40-150) Total Protein 5.9 L (6.0-8.0) g/dL Albumin 3.5 (3.4-4.8) g/dL Globulin 2.4 (2.0-3.5) g/dL Albumin/Globulin Ratio 1.5 (1.3-2.8) 11/13/16 Range/Units 06:00 WBC (4.0-11.0) K/uL RBC (4.50-5.90) M/uL Hgb (13.0-17.0) g/dL Hct (38.0-50.0) % MCV (80.0-98.0) fL MCH (27.0-32.0) pg MCHC (31.0-37.0) g/dL RDW Std Deviation (28.0-62.0) fl RDW Coeff of Heath (11.0-15.0) % Plt Count (150-400) K/uL MPV (7.40-12.00) fL Neut % (Auto) (48.0-80.0) % Lymph % (Auto) (16.0-40.0) % [place] % (Auto) (0.0-15.0) % Eos % (Auto) (0.0-7.0) % Baso % (Auto) (0.0-1.5) % Neut # (Auto) (1.4-5.7) K/uL Lymph # (Auto) (0.6-2.4) K/uL [place] # (Auto) (0.0-0.8) K/uL Eos # (Auto) (0.0-0.7) K/uL Baso # (Auto) (0.0-0.1) K/uL Nucleated RBC % /100WBC Nucleated RBCs # K/uL Sodium (136-146) mmol/L Potassium (3.5-5.1) mmol/L Chloride (98-110) mmol/L Carbon Dioxide (21-31) mmol/L BUN (6.0-23.0) mg/dL Creatinine (0.6-1.5) mg/dL Est Cr Clr Drug Dosing mL/min Estimated GFR (MDRD) ml/min Glucose (60-110) mg/dL POC Glucose 224 H (60-110) mg/dL Calcium (8.8-10.8) mg/dL Phosphorus (2.4-4.7) mg/dL Magnesium (1.5-2.3) mEq/L Total Bilirubin (0.1-1.5) mg/dL AST (5-40) IU/L ALT (8-54) IU/L Alkaline Phosphatase (40-150) Total Protein (6.0-8.0) g/dL Albumin (3.4-4.8) g/dL Globulin (2.0-3.5) g/dL Albumin/Globulin Ratio (1.3-2.8) Med Orders - Current: Current Medications Hydrochlorothiazide (Hydrochlorothiazide) 25 mg PO DAILY [facility] Last Admin: 11/13/16 08:01 Dose: 25 mg Sodium Chloride (Normal Saline) 1,000 mls @ 125 mls/hr IV ASDIRECTED [facility] Last Admin: 11/13/16 05:50 Dose: 125 mls/hr Insulin Aspart (Novolog) 0 unit SUBCUT ACBED [facility] PRN Reason: Protocol Last Admin: 11/13/16 06:51 Dose: 6 unit Lisinopril (Prinivil) 20 mg PO DAILY [facility] Last Admin: 11/13/16 08:01 Dose: 20 mg Metformin HCl (Glucophage Xr) 1,000 mg PO BIDMEALS [facility] Last Admin: 11/13/16 07:51 Dose: 1,000 mg Discontinued Medications Sodium Chloride (Normal Saline) 1,000 mls @ 999 mls/hr IV STAT ONE Stop: 11/11/16 23:04 Last Admin: 11/11/16 22:23 Dose: 999 mls/hr Sodium Chloride (Normal Saline) 1,000 mls @ 125 mls/hr IV STAT [facility] Last Infusion: 11/12/16 06:30 Dose: 125 mls/hr Insulin Aspart (Novolog) 0 unit SUBCUT TIDAC [facility] PRN Reason: Protocol Last Admin: 11/12/16 17:40 Dose: 6 units Insulin Aspart (Novolog) 10 unit SUBCUT ONETIME ONE Stop: 11/13/16 22:07 Insulin Aspart (Novolog) 10 unit SUBCUT ONETIME ONE Stop: 11/12/16 22:07 Last Admin: 11/12/16 22:50 Dose: 10 units Insulin Human Regular (Novolin R) 10 unit IVPUSH ONETIME ONE PRN Reason: Protocol Stop: 11/11/16 22:06 Last Admin: 11/11/16 22:23 Dose: 10 units Insulin Human Regular (Novolin R) 10 unit SUBCUT ONETIME ONE PRN Reason: Protocol Stop: 11/12/16 22:21 Last Admin: 11/11/16 22:24 Dose: 10 units Metformin HCl (Glucophage Xr) 500 mg PO BIDMEALS [facility] Last Admin: 11/12/16 17:40 Dose: 500 mg Metformin HCl (Glucophage) 1,000 mg PO BIDMEALS [facility] Non-Formulary Medication (Lisinopril) 1 tab PO DAILY ANDRE - Exam General: Reports: Alert, Oriented HEENT: Reports: Pupils Equal, EOMI Neck: Reports: Supple, Trachea Midline Lungs: Reports: Clear to Auscultation, Normal Respiratory Effort Cardiovascular: Reports: Regular Rate, Regular Rhythm GI/Abdominal Exam: Normal Bowel Sounds, Soft, Non-Tender Back Exam: Reports: Normal Inspection, Full Range of Motion Extremities: Normal Inspection Skin: Reports: Warm, Dry, Intact Neurological: Reports: No New Focal Deficit Psy/Mental Status: Reports: Alert, Normal Affect, Normal Mood *Q Meaningful Use (DIS) - VTE *Q VTE Criteria *Q: - Stroke *Q Stroke Criteria *Q: - AMI *Q AMI Criteria *Q: <Héctor Almanzar - Last Filed: 11/14/16 14:28> Discharge Summary - Hospital Course Free Text/Narrative:: I was present with the resident during history and examination. I discussed the case with the resident and agree with the findings and plan as documented in the residents note. - Discharge Diagnosis/Problem(s) (1) Diabetes mellitus type 2, uncontrolled, without complications SNOMED Code(s): 055588725, 475809102 ICD Code: E11.65 - TYPE 2 DIABETES MELLITUS WITH HYPERGLYCEMIA Status: Acute Problem Details: The patient's hemoglobin A1c is 13.4% Qualifiers: Diabetes mellitus production control planner insulin use: with production control planner use Qualified Code( s): E11.65 - Type 2 diabetes mellitus with hyperglycemia; Z79.4 - velocity shooter ( current) use of insulin (2) Hyponatremia SNOMED Code(s): 02522588 ICD Code: E87.1 - HYPO-OSMOLALITY AND HYPONATREMIA Status: Acute Priority : High Problem Details: Pseudohyponatremia (3) Pill rolling tremors SNOMED Code(s): 723252692 ICD Code: R25.1 - TREMOR, UNSPECIFIED Status: Chronic Priority: Medium Problem Details: Pill-rolling tremor, 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 (4) Hypertension SNOMED Code(s): 58468380 ICD Code: I10 - ESSENTIAL (PRIMARY) HYPERTENSION Status: Chronic Qualifiers: Hypertension type: essential hypertension Qualified Code(s): I10 - Essential (primary) hypertension - Patient Summary/Data Consults: Consultations 11/12/16 20:42 Consult to Microfilm Machine Operator [Consult to Diabetic Nurse Specialist] [CONS] Routine - Patient Data Vitals - Most Recent: Last Vital Signs Temp 36.0 C 11/13/16 12:00 Pulse 57 L 11/13/16 12:00 Resp 16 11/13/16 12:00 BP 123/72 11/13/16 12:00 Pulse Ox 95 11/13/16 12:00 Med Orders - Current: Current Medications Discontinued Medications Hydrochlorothiazide (Hydrochlorothiazide) 25 mg PO DAILY [facility] Last Admin: 11/13/16 08:01 Dose: 25 mg Sodium Chloride (Normal Saline) 1,000 mls @ 999 mls/hr IV STAT ONE Stop: 11/11/16 23:04 Last Admin: 11/11/16 22:23 Dose: 999 mls/hr Sodium Chloride (Normal Saline) 1,000 mls @ 125 mls/hr IV STAT [facility] Last Infusion: 11/12/16 06:30 Dose: 125 mls/hr Sodium Chloride (Normal Saline) 1,000 mls @ 125 mls/hr IV ASDIRECTED [facility] Last Admin: 11/13/16 05:50 Dose: 125 mls/hr Insulin Aspart (Novolog) 0 unit SUBCUT TIDAC [facility] PRN Reason: Protocol Last Admin: 11/12/16 17:40 Dose: 6 units Insulin Aspart (Novolog) 0 unit SUBCUT ACBED [facility] PRN Reason: Protocol Last Admin: 11/13/16 11:45 Dose: 9 unit Insulin Aspart (Novolog) 10 unit SUBCUT ONETIME ONE Stop: 11/13/16 22:07 Insulin Aspart (Novolog) 10 unit SUBCUT ONETIME ONE Stop: 11/12/16 22:07 Last Admin: 11/12/16 22:50 Dose: 10 units Insulin Human Regular (Novolin R) 10 unit IVPUSH ONETIME ONE PRN Reason: Protocol Stop: 11/11/16 22:06 Last Admin: 11/11/16 22:23 Dose: 10 units Insulin Human Regular (Novolin R) 10 unit SUBCUT ONETIME ONE PRN Reason: Protocol Stop: 11/12/16 22:21 Last Admin: 11/11/16 22:24 Dose: 10 units Lisinopril (Prinivil) 20 mg PO DAILY [facility] Last Admin: 11/13/16 08:01 Dose: 20 mg Metformin HCl (Glucophage Xr) 500 mg PO BIDMEALS [facility] Last Admin: 11/12/16 17:40 Dose: 500 mg Metformin HCl (Glucophage) 1,000 mg PO BIDMEALS [facility] Metformin HCl (Glucophage Xr) 1,000 mg PO BIDMEALS [facility] Last Admin: 11/13/16 07:51 Dose: 1,000 mg Non-Formulary Medication (Lisinopril) 1 tab PO DAILY [facility] *Q Meaningful Use (DIS) - VTE *Q VTE Criteria *Q: - Stroke *Q Stroke Criteria *Q: - AMI *Q AMI Criteria *Q:
[2016-11-13 13:01] VITALS: BP 123/72
[2016-11-13] MEDS ORDERED: Insulin Aspart 100 Units/ML 3 ML Pen SUBCUT ONE (22:06)
== END 2016-11-13 13:45 | disposition home or self-care (01) ==
LOC: MW.ED 21:50 → MW.MS 23:22
PROVIDERS: ADMIT Internal Medicine; ATTEND Internal Medicine
DX: E11.65 Type 2 diabetes mellitus with hyperglycemia (principal); E87.1 Hypo-osmolality and hyponatremia; R25.1 Tremor, unspecified; I10 Essential (primary) hypertension; Z79.4 Long term (current) use of insulin; Z79.84 Long term (current) use of oral hypoglycemic drugs; Z79.899 Other long term (current) drug therapy; Z90.49 Acquired absence of other specified parts of digestive tract
CPT/HCPCS: 36415; 80048; 80053; 82962; 83036; 83735; 84100; 84681; 85025; 96360; 96361; 99285; A9270; G0378; J1815; J7040; 96372; 96374; 99284

== ENCOUNTER 2017-01-30 06:35 | Day surgery (SDC) | payer MEDICARE, MEDICAID ==
[2017-01-30] MEDS ORDERED: ceFAZolin 1 GM in Premix Bag 1 BAG IV ONE (07:00)
[2017-01-30] MEDS ORDERED: Lactated Ringers 1,000 ML IV SCH (07:00)
[2017-01-30] MEDS ORDERED: Lidocaine 1% 20 ML MDV ONE (07:21)
[2017-01-30] MEDS ORDERED: Bupivacaine 0.5% 30 ML SDV ONE (07:21)
--- NOTE | 2017-01-30 07:27 | PCM.PREANE ---
Preanesthetic Assessment - Anesthesia/Transfusion/Family Hx Anesthesia History: Prior Anesthesia Without Reaction Family History of Anesthesia Reaction: No Transfusion History: No Prior Transfusion(s) - Review of Systems General: No Symptoms Pulmonary: No Symptoms Cardiovascular: No Symptoms Gastrointestinal: No Symptoms Neurological: No Symptoms Other: Reports: None - Physical Assessment NPO Status Date: 01/29/17 Height: 1.65 m Weight: 81.9 kg ASA Class: 2 Mental Status: Alert & Oriented x3 Airway Class: Mallampati = 2 Dentition: Reports: Normal Dentition ROM/Head Extension: Full Lungs: Clear to Auscultation, Normal Respiratory Effort Cardiovascular: Regular Rate, Regular Rhythm - Allergies Allergies/Adverse Reactions: Allergies Allergy/AdvReac Type Severity Reaction Status Date / Time No Known Allergies Allergy Verified 01/26/17 13:58 - Acknowledgements Anesthesia Type Planned: General Anesthesia Pt an Appropriate Candidate for the Planned Anesthesia: Yes Alternatives and Risks of Anesthesia Discussed w Pt/Guardian: Yes Pt/Guardian Understands and Agrees with Anesthesia Plan: Yes Additional Comments: PMH: DM2 on metformin+ insulin, last HbA1c was 13, Blood glucose was 130 thia am at 0630. 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 PLAN: GA-LMA PreAnesthesia Questionnaire - Past Health History Medical/Surgical History: Denies Medical/Surgical History HEENT History: Reports: None Cardiovascular History: Reports: Hypertension, Other (See Below) Other Cardiovascular History: states had a stroke in 2009, still has some trouble with memory ("very forgetful"), has some trouble finding the right word to say Respiratory History: Reports: None Gastrointestinal History: Reports: None Genitourinary History: Reports: Other (See Below) (Penal mass) Musculoskeletal History: Reports: None Neurological History: Reports: CVA Other Neuro History: in 2009, still has trouble with memory and speech Psychiatric History: Reports: None Endocrine/Metabolic History: Reports: Diabetes, Type II Hematologic History: Reports: None Immunologic History: Reports: None - Past Surgical History Cardiovascular Surgical History: Reports: None GI Surgical History: Reports: Appendectomy - SUBSTANCE USE Smoking Status *Q: Former Smoker Tobacco Use Within Last Twelve Months: No Second Hand Smoke Exposure: No Days Per Week of Alcohol Use: 0 Recreational Drug Use History: No - HOME MEDS Home Medications: Home Meds Hydrochlorothiazide 25 mg PO DAILY 11/11/16 [History] Lisinopril 20 mg PO DAILY 11/11/16 [History] Insulin Lispro Prot/Lispro [HumaLOG Mix 75-25] 15 unit SQ BID 01/26/17 [History] metFORMIN [Glucophage XR] 1,000 mg PO QAM 01/26/17 [History] - CURRENT (IN HOUSE) MEDS Current Meds: Current Medications Cefazolin Sodium/Dextrose 1 gm (/ Premix) 50 mls @ 100 mls/hr IV ONCALL ONE Stop: 01/30/17 07:29 Lactated Ringer's (Ringers, Lactated) 1,000 mls @ 100 mls/hr IV ASDIRECTED [facility] Last Admin: 01/30/17 06:54 Dose: 100 mls/hr Discontinued Medications Bupivacaine HCl (Marcaine 0.5%) Confirm Administered Dose 30 ml .ROUTE .STK-MED ONE Stop: 01/30/17 07:22 Lidocaine HCl (Xylocaine 1%) Confirm Administered Dose 20 ml .ROUTE .STK-MED ONE Stop: 01/30/17 07:22
[2017-01-30] MEDS ORDERED: Rocuronium 10 MG/ML 10 ML Syringe ONE ×2 (07:34→08:40)
[2017-01-30] MEDS ORDERED: Midazolam 1 MG/ML 2 ML SDV ONE (07:34)
[2017-01-30] MEDS ORDERED: Ondansetron 4 MG/2 ML SDV ONE (07:34)
[2017-01-30] MEDS ORDERED: Dexamethasone 4 MG/ML 5 ML MDV ONE (07:34)
[2017-01-30] MEDS ORDERED: Lidocaine 2% 5 ML SDV ONE (07:34)
[2017-01-30] MEDS ORDERED: fentaNYL 100 MCG/2 ML SDV ONE (07:35)
[2017-01-30] MEDS ORDERED: Propofol 200 MG/20 ML SDV ONE (07:35)
[2017-01-30] MEDS ORDERED: HYDROmorphone 2 MG/ML Syringe ONE (08:26)
[2017-01-30] MEDS ORDERED: Succinylcholine/Normal Saline 200 MG/10 ML Syringe ONE (08:40)
[2017-01-30] MEDS ORDERED: fentaNYL 100 MCG/2 ML SDV IVPUSH PRN (09:13)
--- NOTE | 2017-01-30 11:56 | PCM.POSTAN ---
POST ANESTHESIA ASSESSMENT - MENTAL STATUS Mental Status: Alert, Oriented - RESPIRATORY Respiratory Status: Respiratory Rate WNL, Airway Patent, O2 Saturation Stable - CARDIOVASCULAR CV Status: Pulse Rate WNL, Blood Pressure Stable - GASTROINTESTINAL GI Status: No Symptoms - POST OP HYDRATION Hydration Status: Adequate & Stable
--- NOTE | 2017-01-30 11:56 | PCM48HPAN ---
Post Anesthesia Note - EVALUATION WITHIN 48HRS OF ANESTHETIC Vital Signs in Normal Range: Yes Patient Participated in Evaluation: Yes Respiratory Function Stable: Yes Airway Patent: Yes Cardiovascular Function Stable: Yes Hydration Status Stable: Yes Pain Control Satisfactory: Yes Nausea and Vomiting Control Satisfactory: Yes Mental Status Recovered: Yes
[2017-01-30 12:15] VITALS: BP 155/82
--- NOTE | 2017-01-30 13:57 | OR ---
SURGEON: Sharda Duke M.D. DATE OF PROCEDURE: 01/30/2017 PREOPERATIVE DIAGNOSIS: Right inguinal hernia. POSTOPERATIVE DIAGNOSIS: Right inguinal hernia. OPERATION: Right inguinal hernia repair. DESCRIPTION OF OPERATION: The patient was given general anesthesia, placed in the supine position. Anterior abdominal wall, external genitalia were all prepped and draped in sterile drapes. A right groin incision was made and carried through the fascia. The inguinal canal was exposed. A large lipoma was delivered. The hernia sac was identified and the lipoma was excised. The hernia sac was closed using a pursestring suture of 2-0 silk. The hernia defect and the transversalis fascia were repaired using interrupted 3-0 silk sutures. The pulse is visible and the cord at this point. The repair was then done by making a relaxing incision in the conjoint tendon, which was then sutured to the base of the inguinal ligament using 2-0 silk sutures. At the end of that repair, the opening for the cord is adequate to allow the tip of my index finger. The pulse, though not visible, was palpable on exam and the cord. The external oblique aponeurosis was then closed using interrupted 3-0 silk sutures, 3-0 chromic sutures interrupted were used to reapproximate the subcutaneous tissue. The skin was closed with raeann. Estimated blood loss, under 20 mL. The patient tolerated the procedure well and was moved to recovery room in good condition. JONATHAN / BRITNI /[id number]
== END 2017-01-30 12:00 | disposition home or self-care (01) ==
LOC: MW.SDS 06:35
PROVIDERS: ATTEND Urology
DX: K40.90 Unilateral inguinal hernia, without obstruction or gangrene, not specified as recurrent (principal); I10 Essential (primary) hypertension; E11.9 Type 2 diabetes mellitus without complications; Z79.4 Long term (current) use of insulin; Z79.899 Other long term (current) drug therapy; Z95.2 Presence of prosthetic heart valve; Z90.5 Acquired absence of kidney; Z87.891 Personal history of nicotine dependence
CPT/HCPCS: 49505; J1100; J1170; J2250; J2405; J3010; J7120; 00830; 88304; J2704

== ENCOUNTER 2019-03-10 06:25 | Observation (INO) | payer MEDICARE, MEDICAID ==
--- NOTE | 2019-03-10 06:42 | EDM.PDOC ---
ED HPI GENERAL MEDICAL PROBLEM - General Chief Complaint: Chest Pain Stated Complaint: CHEST PAIN Time Seen by Provider: 03/10/19 06:37 - History of Present Illness INITIAL COMMENTS - FREE TEXT/NARRATIVE: HISTORY AND PHYSICAL: History of present illness: Patient is a 69-year-old male history of diabetes high blood pressure presents with substernal chest pain this episode occurred last night it was somewhat off and on for approximately an hour he is without chest pain now and presents at the request of significant other. He denies associated shortness of breath diaphoresis nausea vomiting or palpitations and as a medic on arrival here. Patient qualified this episode is a false alarm and thinks she just wants to be screened. Review of systems: As per history of present illness and below otherwise all systems reviewed and negative. Past medical history: As per history of present illness and as reviewed below otherwise noncontributory. Surgical history: As per history of present illness and as reviewed below otherwise noncontributory. Social history: No reported history of drug or alcohol abuse. Family history: As per history of present illness and as reviewed below otherwise noncontributory. Physical exam: HEENT: Atraumatic, normocephalic, pupils reactive, negative for conjunctival pallor or scleral icterus, mucous membranes moist, throat clear, neck supple, nontender, trachea midline. Lungs: Clear to auscultation, breath sounds equal bilaterally, chest nontender. Heart: S1S2, regular, negative for clicks, rubs, or JVD. Abdomen: Soft, nondistended, nontender. Negative for masses or hepatosplenomegaly. Negative for costovertebral tenderness. Pelvis: Stable nontender. Genitourinary: Deferred. Rectal: Deferred. Extremities: Atraumatic, negative for cords or calf pain. Neurovascular unremarkable. Neuro: Awake, alert, oriented. Cranial nerves II through XII unremarkable. Cerebellum unremarkable. Motor and sensory unremarkable throughout. Exam nonfocal. Diagnostics: CBC CMP troponin PT/INR chest x-ray EKG Therapeutics: IV O2 monitor aspirin 324 mg by mouth Impression: #1 chest pain #2 history diabetes #3 history of hypertension Definitive disposition and diagnosis as appropriate pending reevaluation and review of above. chest area Pain Score (Numeric/FACES): 6 - Related Data Allergies Allergy/AdvReac Type Severity Reaction Status Date / Time No Known Allergies Allergy Verified 03/10/19 06:34 Home Meds: Home Meds Hydrochlorothiazide 25 mg PO DAILY 11/11/16 [History] Lisinopril 20 mg PO DAILY 11/11/16 [History] Insulin Lispro Prot/Lispro [HumaLOG Mix 75-25] 8 unit SQ BID 01/26/17 [History] metFORMIN [Glucophage XR] 1,000 mg PO QAM 01/26/17 [History] Past Medical History - Past Health History Medical/Surgical History: Denies Medical/Surgical History HEENT History: Reports: None Cardiovascular History: Reports: Hypertension Other Cardiovascular History: states had a stroke in 2009, still has some trouble with memory ("very forgetful"), has some trouble finding the right word to say Respiratory History: Reports: None Gastrointestinal History: Reports: None Genitourinary History: Reports: Other (See Below) Musculoskeletal History: Reports: None Neurological History: Reports: Parkinson's Other Neuro History: in 2009, still has trouble with memory and speech Psychiatric History: Reports: None Endocrine/Metabolic History: Reports: None Hematologic History: Reports: None Immunologic History: Reports: None - Past Surgical History HEENT Surgical History: Reports: None Cardiovascular Surgical History: Reports: None GI Surgical History: Reports: Appendectomy Male Surgical History: Reports: None Social & Family History - Family History Family Medical History: Unobtainable - Caffeine Use Caffeine Use: Reports: None ED ROS GENERAL - Review of Systems Review Of Systems: Comprehensive ROS is negative, except as noted in HPI. ED EXAM, GENERAL - Physical Exam Exam: See Below (Dictation) Course - Vital Signs Last Recorded V/S: Last Vital Signs Temp 36 C 03/10/19 06:34 Pulse 45 L 03/10/19 07:08 Resp 14 03/10/19 07:08 BP 119/61 03/10/19 07:08 Pulse Ox 94 L 03/10/19 07:08 - Orders/Labs/Meds Orders: Active Orders 24 hr Category Date Time Status Cardiac Monitoring [RC] . DIRECTED Care 03/10/19 06:33 Active EKG Documentation Completion [RC] STAT Care 03/10/19 06:33 Active Labs: Laboratory Tests 03/10/19 03/10/19 03/10/19 Range/Units 06:30 06:30 06:30 WBC 5.85 (4.0-11.0) K/uL RBC 4.86 (4.50-5.90) M/uL Hgb 14.8 (13.0-17.0) g/dL Hct 42.4 (38.0-50.0) % MCV 87.2 (80.0-98.0) fL MCH 30.5 (27.0-32.0) pg MCHC 34.9 (31.0-37.0) g/dL RDW Std Deviation 42.5 (28.0-62.0) fl RDW Coeff of Heath 13 (11.0-15.0) % Plt Count 187 (150-400) K/uL MPV 10.30 (7.40-12.00) fL Neut % (Auto) 47.1 L (48.0-80.0) % Lymph % (Auto) 36.9 (16.0-40.0) % [place] % (Auto) 10.3 (0.0-15.0) % Eos % (Auto) 4.8 (0.0-7.0) % Baso % (Auto) 0.9 (0.0-1.5) % Neut # (Auto) 2.8 (1.4-5.7) K/uL Lymph # (Auto) 2.2 (0.6-2.4) K/uL [place] # (Auto) 0.6 (0.0-0.8) K/uL Eos # (Auto) 0.3 (0.0-0.7) K/uL Baso # (Auto) 0.1 (0.0-0.1) K/uL Nucleated RBC % 0.0 /100WBC Nucleated RBCs # 0 K/uL INR 1.05 Sodium 143 (136-148) mmol/L Potassium 3.6 (3.5-5.1) mmol/L Chloride 107 (98-107) mmol/L Carbon Dioxide 26.3 (21.0-32.0) mmol/L BUN 22 H (7.0-18.0) mg/dL Creatinine 1.0 (0.8-1.3) mg/dL Est Cr Clr Drug Dosing TNP Estimated GFR (MDRD) > 60.0 ml/min Glucose 88 (74-106) mg/dL Calcium 8.9 (8.5-10.1) mg/dL Total Bilirubin 0.6 (0.2-1.0) mg/dL AST 20 (15-37) IU/L ALT 30 (14-63) IU/L Alkaline Phosphatase 46 (46-116) U/L Troponin I < 0.050 (0.000-0.056) ng/mL Total Protein 7.5 (6.4-8.2) g/dL Albumin 4.3 (3.4-5.0) g/dL Globulin 3.2 (2.6-4.0) g/dL Albumin/Globulin Ratio 1.3 (0.9-1.6) Departure - Departure Time of Disposition: 08:11 Disposition: Refer to Observation Condition: Good Clinical Impression: Chest pain, Diabetes Hypertension Qualifiers: Hypertension type: essential hypertension Qualified Code(s): I10 - Essential ( primary) hypertension - Discharge Information Referrals: Mika Guzman MD [Primary Care Provider] - Forms: ED Department Discharge - My Orders Last 24 Hours: My Active Orders 03/10/19 06:33 Cardiac Monitoring [RC] . DIRECTED EKG Documentation Completion [RC] STAT - Assessment/Plan Last 24 Hours: My Active Orders 03/10/19 06:33 Cardiac Monitoring [RC] . DIRECTED EKG Documentation Completion [RC] STAT
--- NOTE | 2019-03-10 07:03 | CR ---
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 Lungs are clear of focal opacities. No pneumothorax or pleural abnormality. Dictated by Mina Hughes MD @ Mar 10 2019 7:01AM Signed by Dr. Mina Hughes @ Mar 10 2019 7:01AM
[2019-03-10 07:11] LABS: BLOOD UREA NITROGEN,BUN 22 mg/dL (7.0-18.0); CARBON DIOXIDE,CO2 26.3 mmol/L (21.0-32.0); CHLORIDE,CL 107 mmol/L (98-107); GLUCOSE RANDOM 88 mg/dL (74-106); POTASSIUM,K 3.6 mmol/L (3.5-5.1); SODIUM,NA 143 mmol/L (136-148)
[2019-03-10] MEDS ORDERED: Aspirin 81 MG Tab.Chew PO ONE (08:12)
[2019-03-10] MEDS ORDERED: Aspirin 81 MG Tab.Chew ONE (08:13)
[2019-03-10] MEDS ORDERED: Ondansetron 4 MG Tab.DIS PO PRN (09:18)
[2019-03-10] MEDS ORDERED: Morphine 2 MG/ML Syringe IVPUSH PRN (09:18)
[2019-03-10] MEDS ORDERED: Ondansetron 4 MG/2 ML SDV IVPUSH PRN (09:18)
[2019-03-10] MEDS ORDERED: Acetaminophen 325 MG Tab PO PRN (09:18)
[2019-03-10] MEDS: Pantoprazole 40 MG Tab.CR PO SCH (09:58)
[2019-03-10] MEDS: Enoxaparin 40 MG/0.4 ML Syringe SUBCUT SCH (09:58)
[2019-03-10 10:51] LABS: HEMOGLOBIN A1C 5.9 % (4.5-6.2)
[2019-03-10] MEDS: Insulin Aspart 100 Units/ML 3 ML Pen SUBCUT SCH ×2 (11:00→18:11)
[2019-03-10] MEDS: atorvaSTATin 40 MG Tab PO SCH (12:37)
--- NOTE | 2019-03-10 17:39 | PCM.HP.2 ---
<Nakul Herring M - Last Filed: 03/10/19 17:34> H&P History of Present Illness - General Date of Service: 03/10/19 Admit Problem/Dx: Admission Diagnosis/Problem Admission Diagnosis/Problem Chest pain Source of Information: Patient - History of Present Illness Initial Comments - Free Text/Narative: 69-year-old male presented to ER with complaints of left-sided chest pain. He has a PMH of DM, HTN, stroke and diastolic HF with last EF of 65% as of 2019. He reports the chest pain started last night while he was taking a shower and lasted for several hours. Pain located in left side of chest and left back. It is sharp in nature and resolved on its own. No radiation of pain. He denied having any associated nausea, dizziness, sweats or SOB. Does report history of palpitations and was supposed to follow-up with senior loan officer Dr. Mackay, however, his appointment had been postponed. PCP Dr. Guzman. In the ER, ekg showed sinus bradycardia with no acute ischemic changes. Initial troponin was negative. CBC, CMP were unremarkable. He was given full dose of aspirin in the ER and admitted for further evaluation. chest area Pain Score (Numeric/FACES): 6 - Related Data Allergies/Adverse Reactions: Allergies Allergy/AdvReac Type Severity Reaction Status Date / Time No Known Allergies Allergy Verified 03/10/19 10:26 Home Medications: Home Meds Hydrochlorothiazide 25 mg PO DAILY 11/11/16 [History] metFORMIN [Glucophage XR] 500 mg PO BIDMEALS 01/26/17 [History] Donepezil HCl 5 mg PO BEDTIME 03/10/19 [History] Fenofibrate Nanocrystallized [Fenofibrate] 145 mg PO DAILY 03/10/19 [History] Aspirin 81 mg PO DAILY tab.chew 03/11/19 [Rx] Lisinopril 20 mg PO DAILY 30 Days #30 tablet 03/11/19 [Rx] atorvaSTATin [Lipitor] 40 mg PO DAILY 30 Days #30 tablet 03/11/19 [Rx] Past Medical History - Past Health History Medical/Surgical History: Denies Medical/Surgical History HEENT History: Reports: None Cardiovascular History: Reports: Hypertension Other Cardiovascular History: states had a stroke in 2009, still has some trouble with memory ("very forgetful"), has some trouble finding the right word to say Respiratory History: Reports: None Gastrointestinal History: Reports: None Genitourinary History: Reports: Other (See Below) Musculoskeletal History: Reports: None Neurological History: Reports: Parkinson's Other Neuro History: in 2010, still has trouble with memory and speech Psychiatric History: Reports: None Endocrine/Metabolic History: Reports: Diabetes, Type II 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 Hematologic History: Reports: None Immunologic History: Reports: None Dermatologic History: Reports: None - Infectious Disease History Infectious Disease History: Reports: None - Past Surgical History HEENT Surgical History: Reports: None Cardiovascular Surgical History: Reports: None GI Surgical History: Reports: Appendectomy Male Surgical History: Reports: None Social & Family History - Family History Family Medical History: Unobtainable - Tobacco Use Smoking Status *Q: Never Smoker Second Hand Smoke Exposure: No - Caffeine Use Caffeine Use: Reports: Coffee - Recreational Drug Use Recreational Drug Use: No H&P Review of Systems - Review of Systems: Review Of Systems: Comprehensive ROS is negative, except as noted in HPI. Exam - Exam Exam: See Below - Vital Signs Vital Signs: Last Vital Signs Temp 96.4 F 03/10/19 12:00 Pulse 44 L 03/10/19 12:00 Resp 18 03/10/19 12:00 BP 108/43 L 03/10/19 12:00 Pulse Ox 96 03/10/19 12:00 Weight: 83.518 kg - Exam General: Alert, Oriented, Cooperative, Other (NAD) HEENT: Conjunctiva Clear, EOMI, Hearing Intact, Mucosa Moist & [place], Posterior Pharynx Clear Neck: Supple, Trachea Midline Lungs: Clear to Auscultation, Normal Respiratory Effort Cardiovascular: Bradycardia GI/Abdominal Exam: Normal Bowel Sounds, Soft, Non-Tender, No Distention Extremities: Normal Inspection, No Pedal Edema Peripheral Pulses: 2+: Posterior Tibial (L), Posterior Tibial (R) Skin: Warm, Dry, Intact Neurological: Cranial Nerves Intact, Strength Equal Bilateral, Normal Speech, Normal Tone Psychiatric: Alert, Normal Affect, Normal Mood - Patient Data Lab Results Last 24 hrs: Laboratory Results - last 24 hr 03/10/19 03/10/19 03/10/19 Range/Units 06:30 06:30 06:30 WBC 5.85 (4.0-11.0) K/uL RBC 4.86 (4.50-5.90) M/uL Hgb 14.8 (13.0-17.0) g/dL Hct 42.4 (38.0-50.0) % MCV 87.2 (80.0-98.0) fL MCH 30.5 (27.0-32.0) pg MCHC 34.9 (31.0-37.0) g/dL RDW Std Deviation 42.5 (28.0-62.0) fl RDW Coeff of Heath 13 (11.0-15.0) % Plt Count 187 (150-400) K/uL MPV 10.30 (7.40-12.00) fL Neut % (Auto) 47.1 L (48.0-80.0) % Lymph % (Auto) 36.9 (16.0-40.0) % [place] % (Auto) 10.3 (0.0-15.0) % Eos % (Auto) 4.8 (0.0-7.0) % Baso % (Auto) 0.9 (0.0-1.5) % Neut # (Auto) 2.8 (1.4-5.7) K/uL Lymph # (Auto) 2.2 (0.6-2.4) K/uL [place] # (Auto) 0.6 (0.0-0.8) K/uL Eos # (Auto) 0.3 (0.0-0.7) K/uL Baso # (Auto) 0.1 (0.0-0.1) K/uL Nucleated RBC % 0.0 /100WBC Nucleated RBCs # 0 K/uL INR 1.05 Sodium 143 (136-148) mmol/L Potassium 3.6 (3.5-5.1) mmol/L Chloride 107 (98-107) mmol/L Carbon Dioxide 26.3 (21.0-32.0) mmol/L BUN 22 H (7.0-18.0) mg/dL Creatinine 1.0 (0.8-1.3) mg/dL Est Cr Clr Drug Dosing TNP Estimated GFR (MDRD) > 60.0 ml/min Glucose 88 (74-106) mg/dL POC Glucose (60-110) mg/dL Hemoglobin A1c (4.5-6.2) % Calcium 8.9 (8.5-10.1) mg/dL Total Bilirubin 0.6 (0.2-1.0) mg/dL AST 20 (15-37) IU/L ALT 30 (14-63) IU/L Alkaline Phosphatase 46 (46-116) U/L Troponin I < 0.050 (0.000-0.056) ng/mL Total Protein 7.5 (6.4-8.2) g/dL Albumin 4.3 (3.4-5.0) g/dL Globulin 3.2 (2.6-4.0) g/dL Albumin/Globulin Ratio 1.3 (0.9-1.6) Triglycerides (0-200) mg/dL Cholesterol (50-200) mg/dL LDL Cholesterol, Calc (60-180) mg/dL VLDL Cholesterol (5-55) mg/dL HDL Cholesterol (40-60) mg/dL Cholesterol/HDL Ratio (3.3-6.0) TSH 3rd Generation (0.36-3.74) uIU/mL 03/10/19 03/10/19 03/10/19 Range/Units 06:30 06:30 06:30 WBC (4.0-11.0) K/uL RBC (4.50-5.90) M/uL Hgb (13.0-17.0) g/dL Hct (38.0-50.0) % MCV (80.0-98.0) fL MCH (27.0-32.0) pg MCHC (31.0-37.0) g/dL RDW Std Deviation (28.0-62.0) fl RDW Coeff of Heath (11.0-15.0) % Plt Count (150-400) K/uL MPV (7.40-12.00) fL Neut % (Auto) (48.0-80.0) % Lymph % (Auto) (16.0-40.0) % [place] % (Auto) (0.0-15.0) % Eos % (Auto) (0.0-7.0) % Baso % (Auto) (0.0-1.5) % Neut # (Auto) (1.4-5.7) K/uL Lymph # (Auto) (0.6-2.4) K/uL [place] # (Auto) (0.0-0.8) K/uL Eos # (Auto) (0.0-0.7) K/uL Baso # (Auto) (0.0-0.1) K/uL Nucleated RBC % /100WBC Nucleated RBCs # K/uL INR Sodium (136-148) mmol/L Potassium (3.5-5.1) mmol/L Chloride (98-107) mmol/L Carbon Dioxide (21.0-32.0) mmol/L BUN (7.0-18.0) mg/dL Creatinine (0.8-1.3) mg/dL Est Cr Clr Drug Dosing Estimated GFR (MDRD) ml/min Glucose (74-106) mg/dL POC Glucose (60-110) mg/dL Hemoglobin A1c 5.9 (4.5-6.2) % Calcium (8.5-10.1) mg/dL Total Bilirubin (0.2-1.0) mg/dL AST (15-37) IU/L ALT (14-63) IU/L Alkaline Phosphatase (46-116) U/L Troponin I (0.000-0.056) ng/mL Total Protein (6.4-8.2) g/dL Albumin (3.4-5.0) g/dL Globulin (2.6-4.0) g/dL Albumin/Globulin Ratio (0.9-1.6) Triglycerides 87 (0-200) mg/dL Cholesterol 135 (50-200) mg/dL LDL Cholesterol, Calc 88 (60-180) mg/dL VLDL Cholesterol 17 (5-55) mg/dL HDL Cholesterol 30 L (40-60) mg/dL Cholesterol/HDL Ratio 4.5 (3.3-6.0) TSH 3rd Generation 1.89 (0.36-3.74) uIU/mL 03/10/19 03/10/19 03/10/19 Range/Units 10:42 12:53 13:07 WBC (4.0-11.0) K/uL RBC (4.50-5.90) M/uL Hgb (13.0-17.0) g/dL Hct (38.0-50.0) % MCV (80.0-98.0) fL MCH (27.0-32.0) pg MCHC (31.0-37.0) g/dL RDW Std Deviation (28.0-62.0) fl RDW Coeff of Heath (11.0-15.0) % Plt Count (150-400) K/uL MPV (7.40-12.00) fL Neut % (Auto) (48.0-80.0) % Lymph % (Auto) (16.0-40.0) % [place] % (Auto) (0.0-15.0) % Eos % (Auto) (0.0-7.0) % Baso % (Auto) (0.0-1.5) % Neut # (Auto) (1.4-5.7) K/uL Lymph # (Auto) (0.6-2.4) K/uL [place] # (Auto) (0.0-0.8) K/uL Eos # (Auto) (0.0-0.7) K/uL Baso # (Auto) (0.0-0.1) K/uL Nucleated RBC % /100WBC Nucleated RBCs # K/uL INR Sodium (136-148) mmol/L Potassium (3.5-5.1) mmol/L Chloride (98-107) mmol/L Carbon Dioxide (21.0-32.0) mmol/L BUN (7.0-18.0) mg/dL Creatinine (0.8-1.3) mg/dL Est Cr Clr Drug Dosing Estimated GFR (MDRD) ml/min Glucose (74-106) mg/dL POC Glucose 96 (60-110) mg/dL Hemoglobin A1c (4.5-6.2) % Calcium (8.5-10.1) mg/dL Total Bilirubin (0.2-1.0) mg/dL AST (15-37) IU/L ALT (14-63) IU/L Alkaline Phosphatase (46-116) U/L Troponin I < 0.050 < 0.050 (0.000-0.056) ng/mL Total Protein (6.4-8.2) g/dL Albumin (3.4-5.0) g/dL Globulin (2.6-4.0) g/dL Albumin/Globulin Ratio (0.9-1.6) Triglycerides (0-200) mg/dL Cholesterol (50-200) mg/dL LDL Cholesterol, Calc (60-180) mg/dL VLDL Cholesterol (5-55) mg/dL HDL Cholesterol (40-60) mg/dL Cholesterol/HDL Ratio (3.3-6.0) TSH 3rd Generation (0.36-3.74) uIU/mL 03/10/19 Range/Units 16:39 WBC (4.0-11.0) K/uL RBC (4.50-5.90) M/uL Hgb (13.0-17.0) g/dL Hct (38.0-50.0) % MCV (80.0-98.0) fL MCH (27.0-32.0) pg MCHC (31.0-37.0) g/dL RDW Std Deviation (28.0-62.0) fl RDW Coeff of Heath (11.0-15.0) % Plt Count (150-400) K/uL MPV (7.40-12.00) fL Neut % (Auto) (48.0-80.0) % Lymph % (Auto) (16.0-40.0) % [place] % (Auto) (0.0-15.0) % Eos % (Auto) (0.0-7.0) % Baso % (Auto) (0.0-1.5) % Neut # (Auto) (1.4-5.7) K/uL Lymph # (Auto) (0.6-2.4) K/uL [place] # (Auto) (0.0-0.8) K/uL Eos # (Auto) (0.0-0.7) K/uL Baso # (Auto) (0.0-0.1) K/uL Nucleated RBC % /100WBC Nucleated RBCs # K/uL INR Sodium (136-148) mmol/L Potassium (3.5-5.1) mmol/L Chloride (98-107) mmol/L Carbon Dioxide (21.0-32.0) mmol/L BUN (7.0-18.0) mg/dL Creatinine (0.8-1.3) mg/dL Est Cr Clr Drug Dosing Estimated GFR (MDRD) ml/min Glucose (74-106) mg/dL POC Glucose 82 (60-110) mg/dL Hemoglobin A1c (4.5-6.2) % Calcium (8.5-10.1) mg/dL Total Bilirubin (0.2-1.0) mg/dL AST (15-37) IU/L ALT (14-63) IU/L Alkaline Phosphatase (46-116) U/L Troponin I (0.000-0.056) ng/mL Total Protein (6.4-8.2) g/dL Albumin (3.4-5.0) g/dL Globulin (2.6-4.0) g/dL Albumin/Globulin Ratio (0.9-1.6) Triglycerides (0-200) mg/dL Cholesterol (50-200) mg/dL LDL Cholesterol, Calc (60-180) mg/dL VLDL Cholesterol (5-55) mg/dL HDL Cholesterol (40-60) mg/dL Cholesterol/HDL Ratio (3.3-6.0) TSH 3rd Generation (0.36-3.74) uIU/mL Result Diagrams: 03/10/19 06:30 03/10/19 06:30 - Problem List (1) Atypical chest pain SNOMED Code(s): 403814429 ICD Code: R07.89 - OTHER CHEST PAIN Status: Acute (2) Bradycardia SNOMED Code(s): 36494645 ICD Code: R00.1 - BRADYCARDIA, UNSPECIFIED Status: Acute (3) Diabetes SNOMED Code(s): 37481814 ICD Code: E11.9 - TYPE 2 DIABETES MELLITUS WITHOUT COMPLICATIONS Status: Acute Problem List Initiated/Reviewed/Updated: Yes Orders Last 24hrs: Active Orders 24 hr Category Date Time Status Patient Status [ADT] Stat ADT 03/10/19 08:12 Active Bedrest Bathroom Privileges [RC] ASDIRECTED Care 03/10/19 09:18 Active Blood Glucose Check, Bedside [RC] TIDMEALS Care 03/10/19 09:18 Active Cardiac Monitoring [RC] . DIRECTED Care 03/10/19 06:33 Active EKG Documentation Completion [RC] STAT Care 03/10/19 13:23 Active Influenza Vaccine Charge [RC] .DISCHARGE Care 03/10/19 10:18 Active Oxygen Therapy [RC] PRN Care 03/10/19 09:18 Active Telemetry Monitoring [Cardiac Monitoring] [RC] Q8H Care 03/10/19 09:25 Active VTE/DVT Education [RC] PER UNIT ROUTINE Care 03/10/19 09:18 Active Vital Signs [RC] Q4H Care 03/10/19 09:18 Active Heart Healthy Diet [DIET] Diet 03/10/19 Lunch Active BASIC METABOLIC PANEL,BMP [CHEM] AM Lab 03/11/19 05:11 Ordered CBC WITH AUTO DIFF [HEME] AM Lab 03/11/19 05:11 Ordered TROPONIN I [CHEM] Q3H Lab 03/10/19 16:25 Received Acetaminophen [Tylenol] Med 03/10/19 09:18 Active 650 mg PO Q4H PRN Aspirin Med 03/11/19 09:00 Active 81 mg PO DAILY Donepezil [Aricept] Med 03/10/19 21:00 Active 5 mg PO BEDTIME Enoxaparin [Lovenox] Med 03/10/19 09:30 Active 40 mg SUBCUT Q24H Insulin Aspart [NovoLOG] Med 03/10/19 11:30 Active See Protocol SUBCUT TIDAC Lisinopril [Prinivil] Med 03/11/19 09:00 Active 20 mg PO DAILY Morphine Med 03/10/19 09:18 Active 2 mg IVPUSH Q2H PRN Ondansetron [Zofran ODT] Med 03/10/19 09:18 Active 4 mg PO Q4H PRN Ondansetron [Zofran] Med 03/10/19 09:18 Active 4 mg IVPUSH Q4H PRN Pantoprazole [ProTONIX] Med 03/10/19 09:30 Active 40 mg PO DAILY atorvaSTATin [Lipitor] Med 03/10/19 12:15 Active 40 mg PO DAILY hydroCHLOROthiazide Med 03/11/19 09:00 Active 25 mg PO DAILY Resuscitation Status Routine Resus Stat 03/10/19 09:18 Ordered Medication Orders Acetaminophen (Tylenol) 650 mg PO Q4H PRN PRN Reason: Pain (Mild 1-3)/fever Last Admin: 03/10/19 13:24 Dose: 650 mg Aspirin (Aspirin) 81 mg PO DAILY ANDRE Atorvastatin Calcium (Lipitor) 40 mg PO DAILY ANDRE Last Admin: 03/10/19 12:37 Dose: 40 mg Donepezil HCl (Aricept) 5 mg PO BEDTIME ANDRE Enoxaparin Sodium (Lovenox) 40 mg SUBCUT Q24H [facility] Last Admin: 03/10/19 09:58 Dose: 40 mg Hydrochlorothiazide (Hydrochlorothiazide) 25 mg PO DAILY [facility] Insulin Aspart (Novolog) 0 unit SUBCUT TIDAC [facility]; Protocol Last Admin: 03/10/19 11:00 Dose: Not Given Lisinopril (Prinivil) 20 mg PO DAILY [facility] Morphine Sulfate (Morphine) 2 mg IVPUSH Q2H PRN PRN Reason: Pain (severe 7-10) Stop: 03/11/19 09:21 Ondansetron HCl (Zofran Odt) 4 mg PO Q4H PRN PRN Reason: nausea, able to take PO Ondansetron HCl (Zofran) 4 mg IVPUSH Q4H PRN PRN Reason: Nausea Pantoprazole Sodium (Protonix) 40 mg PO DAILY [facility] Last Admin: 03/10/19 09:58 Dose: 40 mg Assessment/Plan Comment:: Assessment: 1. Atypical chest pain, ACS rule out. 2. Sinus bradycardia. 3. Diabetes mellitus type II. 4. Past medical history of HTN, stroke, HFpEF and migraines. Plan: 1. For ACS rule out, will trend trops q3h and have patient on telemetry. Lipid panel, HgbA1c and TSH also ordered and unremarkable. Will start patient on atorvastatin 40 mg qd. 2. For sinus bradycardia, patient is asymptomatic. Patient's home propranolol has been held. Patient on telemetry. As per Dr. Mackay of cardiology, recommended outpatient follow-up if patient remains asymptomatic. 3. For diabetes mellitus type II, patient is on ISS. <Moris Coyle - Last Filed: 03/16/19 09:08> H&P History of Present Illness - General Admit Problem/Dx: Admission Diagnosis/Problem Admission Diagnosis/Problem Chest pain Exam - Vital Signs Vital Signs: Last Vital Signs Temp 36.2 C 03/11/19 11:45 Pulse 56 L 03/11/19 11:45 Resp 18 03/11/19 11:45 BP 141/71 H 03/11/19 11:45 Pulse Ox 97 03/11/19 11:45 - Patient Data Result Diagrams: 03/11/19 06:14 03/11/19 06:14 Assessment/Plan Comment:: I have performed History and physical of this patient and gave discussed management plan with the resident. I agree with the note unless otherwise specified in my note.
[2019-03-10] MEDS ORDERED: Donepezil 5 MG Tab PO SCH (21:00)
[2019-03-11 06:40] LABS: BLOOD UREA NITROGEN,BUN 16 mg/dL (7.0-18.0); CARBON DIOXIDE,CO2 30.5 mmol/L (21.0-32.0); CHLORIDE,CL 106 mmol/L (98-107); GLUCOSE RANDOM 87 mg/dL (74-106); POTASSIUM,K 4.3 mmol/L (3.5-5.1); SODIUM,NA 143 mmol/L (136-148)
[2019-03-11] MEDS: Insulin Aspart 100 Units/ML 3 ML Pen SUBCUT SCH ×2 (06:47→13:24)
[2019-03-11] MEDS: atorvaSTATin 40 MG Tab PO SCH (08:46)
[2019-03-11] MEDS: Pantoprazole 40 MG Tab.CR PO SCH (08:46)
[2019-03-11] MEDS: Enoxaparin 40 MG/0.4 ML Syringe SUBCUT SCH (08:47)
[2019-03-11] MEDS ORDERED: Aspirin 81 MG Tab.Chew PO SCH (09:00)
[2019-03-11] MEDS ORDERED: Hydrochlorothiazide 25 MG Tab PO SCH (09:00)
[2019-03-11] MEDS ORDERED: Lisinopril 10 MG Tab PO SCH (09:00)
[2019-03-11 11:46] VITALS: BP 141/71; PULSE 56
--- NOTE | 2019-03-11 17:12 | PCM.DCSUM1 ---
Discharge Summary - Hospital Course Free Text/Narrative:: 69-year-old male admitted for chest pain and ACS rule out. He has a PMH of DM II , HTN, stroke and diastolic heart failure. His troponins were trended and were negative x 3. CXR on admission was negative. EKG on admission showed no acute ischemic changes. Patient did have sinus bradycardia and his heart rate was ~40- 45 bpm throughout his hospitalization. His propranolol was held because of his bradycardia. Patient remained asymptomatic and was on telemetry without any reported events. Patient's bradycardia and chest pain were discussed with cardiology who recommended outpatient follow-up. Patient did already have ziopatch done recently as ordered by his PCP. Patient was discharged in stable condition and was started on atorvastatin 40 mg daily and baby aspirin daily. 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 - Discharge Data Discharge Date: 03/11/19 Discharge Disposition: Home, Self-Care 01 Condition: Stable - Referral to Home Health Primary Care Physician: Mika Guzman MD - Discharge Diagnosis/Problem(s) (1) Atypical chest pain SNOMED Code(s): 572240971 ICD Code: R07.89 - OTHER CHEST PAIN Status: Acute (2) Bradycardia SNOMED Code(s): 06441085 ICD Code: R00.1 - BRADYCARDIA, UNSPECIFIED Status: Acute (3) Diabetes SNOMED Code(s): 50240065 ICD Code: E11.9 - TYPE 2 DIABETES MELLITUS WITHOUT COMPLICATIONS Status: Acute - Patient Instructions Diet: Heart Healthy Diet, Diabetic Diet Activity: As Tolerated Notify Provider of: Fever, Increased Pain, Swelling and Redness, Drainage, Nausea and/or Vomiting - Discharge Plan *PRESCRIPTION DRUG MONITORING PROGRAM REVIEWED*: Not Applicable *COPY OF PRESCRIPTION DRUG MONITORING REPORT IN PATIENT EAN: Not Applicable Prescriptions/Med Rec: atorvaSTATin [Lipitor] 40 mg PO DAILY 30 Days #30 tablet Lisinopril 20 mg PO DAILY 30 Days #30 tablet Home Medications: Home Meds Hydrochlorothiazide 25 mg PO DAILY 11/11/16 [History] metFORMIN [Glucophage XR] 500 mg PO BIDMEALS 01/26/17 [History] Donepezil HCl 5 mg PO BEDTIME 03/10/19 [History] Fenofibrate Nanocrystallized [Fenofibrate] 145 mg PO DAILY 03/10/19 [History] Aspirin 81 mg PO DAILY tab.chew 03/11/19 [Rx] Lisinopril 20 mg PO DAILY 30 Days #30 tablet 03/11/19 [Rx] atorvaSTATin [Lipitor] 40 mg PO DAILY 30 Days #30 tablet 03/11/19 [Rx] Patient Handouts: Bradycardia, Adult, Nonspecific Chest Pain, [id number], Atorvastatin tablets, Lisinopril tablets Referrals: Monica Mackay MD [Physician] - 03/19/19 9:00 am Mika Guzman MD [Primary Care Provider] - 03/26/19 2:30 pm - Discharge Summary/Plan Comment DC Time >30 min.: No - Patient Data Vitals - Most Recent: Last Vital Signs Temp 97.1 F 03/11/19 11:45 Pulse 56 L 03/11/19 11:45 Resp 18 03/11/19 11:45 BP 141/71 H 03/11/19 11:45 Pulse Ox 97 03/11/19 11:45 Weight - Most Recent: 184 lb 2 oz I&O - Last 24 hours: Intake & Output 03/11/19 03/11/19 03/11/19 06:59 14:59 22:59 Intake Total 500 850 Output Total 1100 350 Balance -600 500 Lab Results - Last 24 hrs: Laboratory Results - last 24 hr 03/10/19 03/11/19 03/11/19 Range/Units 16:25 06:14 06:14 WBC 4.37 (4.0-11.0) K/uL RBC 4.85 (4.50-5.90) M/uL Hgb 14.7 (13.0-17.0) g/dL Hct 42.7 (38.0-50.0) % MCV 88.0 (80.0-98.0) fL MCH 30.3 (27.0-32.0) pg MCHC 34.4 (31.0-37.0) g/dL RDW Std Deviation 43.1 (28.0-62.0) fl RDW Coeff of Heath 13 (11.0-15.0) % Plt Count 169 (150-400) K/uL MPV 9.80 (7.40-12.00) fL Neut % (Auto) 35.0 L (48.0-80.0) % Lymph % (Auto) 48.5 H (16.0-40.0) % [place] % (Auto) 10.8 (0.0-15.0) % Eos % (Auto) 4.8 (0.0-7.0) % Baso % (Auto) 0.9 (0.0-1.5) % Neut # (Auto) 1.5 (1.4-5.7) K/uL Lymph # (Auto) 2.1 (0.6-2.4) K/uL [place] # (Auto) 0.5 (0.0-0.8) K/uL Eos # (Auto) 0.2 (0.0-0.7) K/uL Baso # (Auto) 0.0 (0.0-0.1) K/uL Nucleated RBC % 0.0 /100WBC Nucleated RBCs # 0 K/uL Sodium 143 (136-148) mmol/L Potassium 4.3 (3.5-5.1) mmol/L Chloride 106 (98-107) mmol/L Carbon Dioxide 30.5 (21.0-32.0) mmol/L BUN 16 (7.0-18.0) mg/dL Creatinine 1.1 (0.8-1.3) mg/dL Est Cr Clr Drug Dosing 55.91 mL/min Estimated GFR (MDRD) > 60.0 ml/min Glucose 87 (74-106) mg/dL POC Glucose (60-110) mg/dL Calcium 9.0 (8.5-10.1) mg/dL Troponin I < 0.050 (0.000-0.056) ng/mL 03/11/19 03/11/19 Range/Units 06:35 11:51 WBC (4.0-11.0) K/uL RBC (4.50-5.90) M/uL Hgb (13.0-17.0) g/dL Hct (38.0-50.0) % MCV (80.0-98.0) fL MCH (27.0-32.0) pg MCHC (31.0-37.0) g/dL RDW Std Deviation (28.0-62.0) fl RDW Coeff of Heath (11.0-15.0) % Plt Count (150-400) K/uL MPV (7.40-12.00) fL Neut % (Auto) (48.0-80.0) % Lymph % (Auto) (16.0-40.0) % [place] % (Auto) (0.0-15.0) % Eos % (Auto) (0.0-7.0) % Baso % (Auto) (0.0-1.5) % Neut # (Auto) (1.4-5.7) K/uL Lymph # (Auto) (0.6-2.4) K/uL [place] # (Auto) (0.0-0.8) K/uL Eos # (Auto) (0.0-0.7) K/uL Baso # (Auto) (0.0-0.1) K/uL Nucleated RBC % /100WBC Nucleated RBCs # K/uL Sodium (136-148) mmol/L Potassium (3.5-5.1) mmol/L Chloride (98-107) mmol/L Carbon Dioxide (21.0-32.0) mmol/L BUN (7.0-18.0) mg/dL Creatinine (0.8-1.3) mg/dL Est Cr Clr Drug Dosing mL/min Estimated GFR (MDRD) ml/min Glucose (74-106) mg/dL POC Glucose 78 113 H (60-110) mg/dL Calcium (8.5-10.1) mg/dL Troponin I (0.000-0.056) ng/mL Med Orders - Current: Current Medications Discontinued Medications Acetaminophen (Tylenol) 650 mg PO Q4H PRN PRN Reason: Pain (Mild 1-3)/fever Last Admin: 03/10/19 13:24 Dose: 650 mg Aspirin (Aspirin) 324 mg PO ONETIME ONE Stop: 03/10/19 08:13 Last Admin: 03/10/19 08:18 Dose: 324 mg Aspirin (Aspirin) Confirm Administered Dose 324 mg .ROUTE .STK-MED ONE Stop: 03/10/19 08:14 Last Admin: 03/10/19 09:47 Dose: Not Given Aspirin (Aspirin) 81 mg PO DAILY [facility] Last Admin: 03/11/19 08:46 Dose: 81 mg Atorvastatin Calcium (Lipitor) 40 mg PO DAILY [facility] Last Admin: 03/11/19 08:46 Dose: 40 mg Donepezil HCl (Aricept) 5 mg PO BEDTIME [facility] Last Admin: 03/10/19 20:27 Dose: 5 mg Enoxaparin Sodium (Lovenox) 40 mg SUBCUT Q24H [facility] Last Admin: 03/11/19 08:47 Dose: 40 mg Hydrochlorothiazide (Hydrochlorothiazide) 25 mg PO DAILY [facility] Last Admin: 03/11/19 08:46 Dose: 25 mg Influenza Virus Vaccine (Pharmacy To Dose - Influenza Vaccine) 1 each IM ONETIME ONE Stop: 03/10/19 10:19 Last Admin: 03/11/19 12:51 Dose: Not Given Influenza Virus Vaccine (Fluzone High-Dose 2018-20 Syringe) 180 mcg IM .ONCE ONE Stop: 03/10/19 11:01 Last Admin: 03/11/19 12:51 Dose: 180 mcg Insulin Aspart (Novolog) 0 unit SUBCUT TIDAC [facility]; Protocol Last Admin: 03/11/19 13:24 Dose: Not Given Lisinopril (Prinivil) 20 mg PO DAILY [facility] Last Admin: 03/11/19 08:47 Dose: 20 mg Morphine Sulfate (Morphine) 2 mg IVPUSH Q2H PRN PRN Reason: Pain (severe 7-10) Stop: 03/11/19 09:21 Ondansetron HCl (Zofran Odt) 4 mg PO Q4H PRN PRN Reason: nausea, able to take PO Ondansetron HCl (Zofran) 4 mg IVPUSH Q4H PRN PRN Reason: Nausea Pantoprazole Sodium (Protonix) 40 mg PO DAILY [facility] Last Admin: 03/11/19 08:46 Dose: 40 mg
== END 2019-03-11 13:20 | disposition home or self-care (01) ==
LOC: MW.ED 06:25 → MW.MS 08:48
PROVIDERS: ADMIT Student in an Organized Health Care Education/Training Program; ATTEND Student in an Organized Health Care Education/Training Program
DX: R07.89 Other chest pain (principal); R00.1 Bradycardia, unspecified; I11.0 Hypertensive heart disease with heart failure; I50.32 Chronic diastolic (congestive) heart failure; E11.9 Type 2 diabetes mellitus without complications; G43.909 Migraine, unspecified, not intractable, without status migrainosus; Z23 Encounter for immunization; Z86.73 Personal history of transient ischemic attack (TIA), and cerebral infarction without residual deficits; Z79.84 Long term (current) use of oral hypoglycemic drugs; Z79.82 Long term (current) use of aspirin; Z79.899 Other long term (current) drug therapy
CPT/HCPCS: 36415; 71045; 80048; 80053; 80061; 82962; 83036; 84443; 84484; 85025; 85610; 90662; 93005; 96372; 99285; A9270; G0008; G0378; J1650; 99284

== ENCOUNTER 2021-01-25 12:41 | Emergency (ER) | payer MEDICARE, MEDICAID ==
--- NOTE | 2021-01-25 12:45 | EDM.PDOC ---
ED HPI GENERAL MEDICAL PROBLEM - General Stated Complaint: CHEST PAIN Time Seen by Provider: 01/25/21 12:42 Source of Information: Reports: Patient History Limitations: Reports: No Limitations - History of Present Illness INITIAL COMMENTS - FREE TEXT/NARRATIVE: 71-year-old male past medical history forgetfulness, pill-rolling tremors, type 2 diabetes, hypertension presents for chest pain. Patient states chest pain started this morning and then went away. The chest pain returned around 30 minutes prior to arrival. Patient currently does not have chest pain. Patient denies shortness of breath, nausea, vomiting. He notes that he had a similar episode about a month ago at [facility] and was admitted and had a cardiac cath which was negative, no stents placed. - Related Data Allergies Allergy/AdvReac Type Severity Reaction Status Date / Time No Known Allergies Allergy Verified 01/25/21 12:51 Home Meds: Home Meds Hydrochlorothiazide 25 mg PO DAILY 11/11/16 [History] metFORMIN [Glucophage XR] 500 mg PO BIDMEALS 01/26/17 [History] Donepezil HCl 5 mg PO BEDTIME 03/10/19 [History] Fenofibrate Nanocrystallized [Fenofibrate] 145 mg PO DAILY 03/10/19 [History] Aspirin 81 mg PO DAILY tab.chew 03/11/19 [Rx] atorvaSTATin [Lipitor] 40 mg PO DAILY 30 Days #30 tablet 03/11/19 [Rx] lisinopriL [Lisinopril] 20 mg PO DAILY 30 Days #30 tablet 03/11/19 [Rx] Past Medical History - Past Health History Medical/Surgical History: Denies Medical/Surgical History HEENT History: Reports: None Cardiovascular History: Reports: Hypertension Other Cardiovascular History: states had a stroke in 2009, still has some trouble with memory ("very forgetful"), has some trouble finding the right word to say Respiratory History: Reports: None Gastrointestinal History: Reports: None Genitourinary History: Reports: Other (See Below) Musculoskeletal History: Reports: None Neurological History: Reports: Parkinson's Other Neuro History: in 2009, still has trouble with memory and speech Psychiatric History: Reports: None Endocrine/Metabolic History: Reports: Diabetes, Type II Insulin Pump Model and Clerical Investigator: None Hematologic History: Reports: None Immunologic History: Reports: None Dermatologic History: Reports: None - Infectious Disease History Infectious Disease History: Reports: None - Past Surgical History HEENT Surgical History: Reports: None Cardiovascular Surgical History: Reports: None GI Surgical History: Reports: Appendectomy Male Surgical History: Reports: None Social & Family History - Family History Family Medical History: Unobtainable - Caffeine Use Caffeine Use: Reports: Coffee ED ROS GENERAL - Review of Systems Review Of Systems: Comprehensive ROS is negative, except as noted in HPI. ED EXAM, GENERAL - Physical Exam Exam: See Below Exam Limited By: No Limitations General Appearance: Alert, WD/WN, No Apparent Distress Ears: Hearing Grossly Normal Throat/Mouth: Normal Voice, No Airway Compromise Head: Atraumatic, Normocephalic Neck: Normal Inspection Respiratory/Chest: No Respiratory Distress, Lungs Clear, Normal Breath Sounds, No Accessory Muscle Use Cardiovascular: Normal Peripheral Pulses, Regular Rate, Rhythm, No Edema GI/Abdominal: Soft, Non-Tender Extremities: Normal Inspection Neurological: Alert, Normal Cognition, Normal Gait Psychiatric: Normal Affect, Normal Mood Skin Exam: Warm, Dry, Intact, Normal Color #1 Interpretation EKG Date: 01/25/21 Time: 12:40 Rhythm: NSR Rate (Beats/Min): 56 [place]: Normal P-Wave: Present QRS: Normal ST-T: Normal QT: Normal PA/PQ Interval: 137 EKG Interpretation Comments: sinus bradycardia, no ischemic changes Course - Vital Signs Last Recorded V/S: Last Vital Signs Temp 97 F 01/25/21 12:48 Pulse 48 L 01/25/21 16:21 Resp 20 01/25/21 12:48 BP 148/83 H 01/25/21 16:21 Pulse Ox 94 L 01/25/21 16:21 - Orders/Labs/Meds Orders: Active Orders 24 hr Category Date Time Status Saline Lock Insert [OM.PC] Stat Oth 01/25/21 12:51 Ordered Labs: Laboratory Tests 01/25/21 01/25/21 01/25/21 Range/Units 12:47 12:47 12:47 WBC 5.81 (4.0-11.0) K/uL RBC 4.94 (4.50-5.90) M/uL Hgb 15.0 (13.0-17.0) g/dL Hct 42.8 (38.0-50.0) % MCV 86.6 (80.0-98.0) fL MCH 30.4 (27.0-32.0) pg MCHC 35.0 (31.0-37.0) g/dL RDW Std Deviation 42.8 (28.0-62.0) fl RDW Coeff of Heath 14 (11.0-15.0) % Plt Count 184 (150-400) K/uL MPV 10.40 (7.40-12.00) fL Neut % (Auto) 54.2 (48.0-80.0) % Lymph % (Auto) 33.6 (16.0-40.0) % [place] % (Auto) 7.9 (0.0-15.0) % Eos % (Auto) 3.6 (0.0-7.0) % Baso % (Auto) 0.7 (0.0-1.5) % Neut # (Auto) 3.2 (1.4-5.7) K/uL Lymph # (Auto) 2.0 (0.6-2.4) K/uL [place] # (Auto) 0.5 (0.0-0.8) K/uL Eos # (Auto) 0.2 (0.0-0.7) K/uL Baso # (Auto) 0.0 (0.0-0.1) K/uL Nucleated RBC % 0.0 /100WBC Nucleated RBCs # 0 K/uL INR 1.00 APTT 26.4 (18.6-31.3) SEC D-Dimer, Quantitative 0.53 H (0.0-0.50) mg/L FEU Sodium 142 (136-148) mmol/L Potassium 3.8 (3.5-5.1) mmol/L Chloride 105 (98-107) mmol/L Carbon Dioxide 25.9 (21.0-32.0) mmol/L BUN 10 (7.0-18.0) mg/dL Creatinine 0.8 (0.8-1.3) mg/dL Est Cr Clr Drug Dosing 74.74 mL/min Estimated GFR (MDRD) > 60.0 ml/min Glucose 120 H (74-106) mg/dL POC Glucose (70-99) mg/dL Calcium 8.2 L (8.5-10.1) mg/dL Total Bilirubin 0.5 (0.2-1.0) mg/dL AST 23 (15-37) IU/L ALT 34 (14-63) IU/L Alkaline Phosphatase 76 (46-116) U/L Troponin I < 0.050 (0.000-0.056) ng/mL B-Natriuretic Peptide (<100) PG/ML Total Protein 7.2 (6.4-8.2) g/dL Albumin 4.1 (3.4-5.0) g/dL Globulin 3.1 (2.6-4.0) g/dL Albumin/Globulin Ratio 1.3 (0.9-1.6) SARS-CoV-2 RNA ([place]) (NEGATIVE) 01/25/21 01/25/21 01/25/21 Range/Units 12:47 12:58 13:10 WBC (4.0-11.0) K/uL RBC (4.50-5.90) M/uL Hgb (13.0-17.0) g/dL Hct (38.0-50.0) % MCV (80.0-98.0) fL MCH (27.0-32.0) pg MCHC (31.0-37.0) g/dL RDW Std Deviation (28.0-62.0) fl RDW Coeff of Heath (11.0-15.0) % Plt Count (150-400) K/uL MPV (7.40-12.00) fL Neut % (Auto) (48.0-80.0) % Lymph % (Auto) (16.0-40.0) % [place] % (Auto) (0.0-15.0) % Eos % (Auto) (0.0-7.0) % Baso % (Auto) (0.0-1.5) % Neut # (Auto) (1.4-5.7) K/uL Lymph # (Auto) (0.6-2.4) K/uL [place] # (Auto) (0.0-0.8) K/uL Eos # (Auto) (0.0-0.7) K/uL Baso # (Auto) (0.0-0.1) K/uL Nucleated RBC % /100WBC Nucleated RBCs # K/uL INR APTT (18.6-31.3) SEC D-Dimer, Quantitative (0.0-0.50) mg/L FEU Sodium (136-148) mmol/L Potassium (3.5-5.1) mmol/L Chloride (98-107) mmol/L Carbon Dioxide (21.0-32.0) mmol/L BUN (7.0-18.0) mg/dL Creatinine (0.8-1.3) mg/dL Est Cr Clr Drug Dosing mL/min Estimated GFR (MDRD) ml/min Glucose (74-106) mg/dL POC Glucose 119 H (70-99) mg/dL Calcium (8.5-10.1) mg/dL Total Bilirubin (0.2-1.0) mg/dL AST (15-37) IU/L ALT (14-63) IU/L Alkaline Phosphatase (46-116) U/L Troponin I (0.000-0.056) ng/mL B-Natriuretic Peptide 27 (<100) PG/ML Total Protein (6.4-8.2) g/dL Albumin (3.4-5.0) g/dL Globulin (2.6-4.0) g/dL Albumin/Globulin Ratio (0.9-1.6) SARS-CoV-2 RNA ([place]) NEGATIVE (NEGATIVE) 01/25/21 Range/Units 15:23 WBC (4.0-11.0) K/uL RBC (4.50-5.90) M/uL Hgb (13.0-17.0) g/dL Hct (38.0-50.0) % MCV (80.0-98.0) fL MCH (27.0-32.0) pg MCHC (31.0-37.0) g/dL RDW Std Deviation (28.0-62.0) fl RDW Coeff of Heath (11.0-15.0) % Plt Count (150-400) K/uL MPV (7.40-12.00) fL Neut % (Auto) (48.0-80.0) % Lymph % (Auto) (16.0-40.0) % [place] % (Auto) (0.0-15.0) % Eos % (Auto) (0.0-7.0) % Baso % (Auto) (0.0-1.5) % Neut # (Auto) (1.4-5.7) K/uL Lymph # (Auto) (0.6-2.4) K/uL [place] # (Auto) (0.0-0.8) K/uL Eos # (Auto) (0.0-0.7) K/uL Baso # (Auto) (0.0-0.1) K/uL Nucleated RBC % /100WBC Nucleated RBCs # K/uL INR APTT (18.6-31.3) SEC D-Dimer, Quantitative (0.0-0.50) mg/L FEU Sodium (136-148) mmol/L Potassium (3.5-5.1) mmol/L Chloride (98-107) mmol/L Carbon Dioxide (21.0-32.0) mmol/L BUN (7.0-18.0) mg/dL Creatinine (0.8-1.3) mg/dL Est Cr Clr Drug Dosing mL/min Estimated GFR (MDRD) ml/min Glucose (74-106) mg/dL POC Glucose (70-99) mg/dL Calcium (8.5-10.1) mg/dL Total Bilirubin (0.2-1.0) mg/dL AST (15-37) IU/L ALT (14-63) IU/L Alkaline Phosphatase (46-116) U/L Troponin I < 0.050 (0.000-0.056) ng/mL B-Natriuretic Peptide (<100) PG/ML Total Protein (6.4-8.2) g/dL Albumin (3.4-5.0) g/dL Globulin (2.6-4.0) g/dL Albumin/Globulin Ratio (0.9-1.6) SARS-CoV-2 RNA ([place]) (NEGATIVE) Meds: Medications Discontinued Medications Generic Name Dose Route Start Last Admin Trade Name Freq PRN Reason Stop Dose Admin Aspirin 324 mg 01/25/21 12:51 01/25/21 13:00 Aspirin 81 Mg Tab.Chew PO 01/25/21 12:52 324 mg ONETIME ONE Administration - Re-Assessments/Exams Free Text/Narrative Re-Assessment/Exam: 01/25/21 16:34 Repeat troponin is negative. Age-adjusted D-dimer is negative. Will discharge patient with cardiology follow-up. Departure - Departure Time of Disposition: 16:34 Disposition: Home, Self-Care 01 Condition: Good Clinical Impression: Chest pain Qualifiers: Chest pain type: unspecified Qualified Code(s): R07.9 - Chest pain, unspecified - Discharge Information Instructions: Nonspecific Chest Pain, Adult Additional Instructions: Your labs were unremarkable. You should follow-up with a supervisor heavy equipment. Information for cardiology is provided below. If you have worsening chest pain or difficulty breathing should come back to the hospital. [facility] [address] [place] [address] [phone] The following information is given to patients seen in the emergency department who are being discharged to home. This information is to outline your options for follow-up care. We provide all patients seen in our emergency department with a follow-up referral. The need for follow-up, as well as the timing and circumstances, are variable depending upon the specifics of your emergency department visit. If you don't have a primary care physician on staff, we will provide you with a referral. We always advise you to contact your personal physician following an emergency department visit to inform them of the circumstance of the visit and for follow-up with them and/or the need for any referrals to a consulting specialist. The emergency department will also refer you to a specialist when appropriate. This referral assures that you have the opportunity for follow-up care with a specialist. All of these measure are taken in an effort to provide you with optimal care, which includes your follow-up. Under all circumstances we always encourage you to contact your private physician who remains a resource for coordinating your care. When calling for follow-up care, please make the office aware that this follow-up is from your recent emergency room visit. If for any reason you are refused follow-up, please contact the [facility] Emergency Department at and asked to speak to the emergency department charge nurse. Please follow up with your primary care physician. If you do not have a primary care physician, see below: [facility] [address] [place] [id number] [facility] [address] [place] [id number] [facility] [address] [place] [id number] Sepsis Event Note (ED) - Focused Exam Vital Signs: Vital Signs Temp Pulse Resp BP Pulse Ox 01/25/21 16:21 48 L 148/83 H 94 L 01/25/21 16:05 48 L 137/81 95 01/25/21 15:36 51 L 148/82 H 94 L 01/25/21 15:20 46 L 146/80 H 94 L 01/25/21 15:05 49 L 148/82 H 95 01/25/21 14:50 48 L 156/84 H 97 01/25/21 14:35 55 L 143/85 H 95 01/25/21 14:20 50 L 145/75 H 93 L 01/25/21 14:05 53 L 137/77 95 01/25/21 13:51 54 L 137/78 94 L 01/25/21 13:20 56 L 150/81 H 92 L 01/25/21 13:05 56 L 157/81 H 93 L 01/25/21 12:48 97 F 56 L 20 153/88 H 95 - My Orders Last 24 Hours: My Active Orders 01/25/21 12:51 Saline Lock Insert [OM.PC] Stat - Assessment/Plan Last 24 Hours: My Active Orders 01/25/21 12:51 Saline Lock Insert [OM.PC] Stat
[2021-01-25] MEDS ORDERED: Aspirin 81 MG Tab.Chew PO ONE (12:51)
[2021-01-25 13:28] LABS: BLOOD UREA NITROGEN,BUN 10 mg/dL (7.0-18.0); CARBON DIOXIDE,CO2 25.9 mmol/L (21.0-32.0); CHLORIDE,CL 105 mmol/L (98-107); GLUCOSE RANDOM 120 mg/dL (74-106); POTASSIUM,K 3.8 mmol/L (3.5-5.1); SODIUM,NA 142 mmol/L (136-148)
--- NOTE | 2021-01-25 13:33 | CR ---
INDICATION: Chest pain. TECHNIQUE: Chest 1 views. COMPARISON: March 10, 2019. FINDINGS: Cardiovascular and mediastinum: Heart size and vasculature are normal in caliber and appearance. Lungs and pleural spaces: Lungs are clear. No sign of infiltrate or mass. No sign of pleural effusion. No pneumothorax. Bones and soft tissues: No significant findings. IMPRESSION: No acute findings and no significant changes from the prior exam. Dictated by Brandon Stafford MD @ 01/25/2021 1:31:04 PM (Electronically Signed)
[2021-01-25 16:43] VITALS: BP 161/80; PULSE 51
== END 2021-01-25 16:45 | disposition home or self-care (01) ==
LOC: MW.ED 12:41
DX: R07.9 Chest pain, unspecified (principal); I10 Essential (primary) hypertension; E11.9 Type 2 diabetes mellitus without complications; R00.1 Bradycardia, unspecified; Z79.82 Long term (current) use of aspirin; Z79.84 Long term (current) use of oral hypoglycemic drugs; Z79.899 Other long term (current) drug therapy; Z20.822 Contact with and (suspected) exposure to COVID-19
CPT/HCPCS: 36415; 71045; 80053; 82947; 83880; 84484; 85025; 85379; 85610; 85730; 99285; A9270; U0002